=== PATIENT | female | born 1970 | race Caucasian/White ===

== ENCOUNTER 2024-08-30 20:24 | Inpatient (IN) | payer BC, OTHER, SELFPAY ==
[2024-08-30] VITALS (9 sets, daily range): BP systolic 113–168; BP diastolic 68–113; BMI 57.6; BMI 56.2
--- NOTE | 2024-08-30 15:23 | ED.GENMED ---
History of Present Illness
General
Chief Complaint: Fainting/Passed Out
Source: patient, records and ambulance crew
Exam Limitations: none
Time Seen by Provider: 08/30/24 15:08
Nursing documentation reviewed up to this point in time: agreed with
History of Present Illness
History of Present Illness:
53-year-old female with a past medical history of migraines, seizures, asthma, conversion disorder, chronic pain syndrome, mitochondrial disease, morbid obesity, recurrent syncope, prior strokes, history of tracheostomy who presents to the emergency
room for evaluation after syncopal event. Patient says that she has an appointment with her primary doctor every 2 weeks due to her multiple chronic illnesses. She says that she had one of her routine appointments today and during the appointment
she became dizzy and passed out. She says that this felt more like an episode of her recurrent syncope rather than a seizure. She was transported to the ER for evaluation. She has mild associated headache and has some tightness in her
chest/shortness of breath; she says that she has been coughing chronically. Denies any other acute complaints today. She denies any symptoms prior to passing out today. Her family is at bedside and helped with some collateral history:
Past History
Past History
ED Past Medical History: Asthma, Seizures, Psychiatric (Depression, conversion disorder), Other (Chronic pain syndrome, migraine headaches, morbid obesity, extensive workup for connective tissue disease, mitochondrial disease, neuro cardiogenic
syncope, strokes) and Other (Diverticulitis, Abd hernia, UTI, Anemia, Primary immune def. disease, TI fistula)
ED Past Surgical History: (X 4) and Other (muscle bx x 4, Trach, )
Social History
Tobacco: Former smoker
Alcohol: None
Personal:
Living: with family
Employment: Not employed
Family History
Family History: Other (Reviewed and non-contributory)
Review of Systems
Review of Systems
All Other Systems: ROS reviewed and negative except as documented in HPI and ROS
Respiratory: Reports cough and trouble breathing
Cardiac: Reports chest pain (Tightness); Denies palpitations
ABD/GI: Denies abdominal pain, nausea or vomiting
: Denies flank pain
Musculoskeletal: Denies edema
Neurological: Reports dizzy and headache
Phy Exam
Physical Exam
Physical Exam:
General: Sleeping in bed during my initial entry but wakes to voice and is able to hold conversation, oriented x 3, nontoxic-appearing
Head: Normocephalic, atraumatic
Eyes: Conjunctiva normal, pupils equal round and reactive to light bilaterally
Throat: Airway intact, handling secretions
Neck: Trachea midline, tracheostomy in place
Lungs: Patient has bilateral scattered expiratory wheezing
Heart: Regular rate and rhythm, no murmurs, gallops, or rubs appreciated
Abd: Soft, non distended, nontender; abdominal wall hernia noted
Neuro: Cranial nerves grossly intact, moving all extremities equally
Extremities: Trace edema in the legs, no calf tenderness, extremities are warm and well-perfused
Scores
Heart Failure Risk
Heart Failure Risk Score: Not Applicable
Heart Score for Chest Pain Patients
STEMI patient?: Not applicable
Withdrawal Assessment of Alcohol
Withdrawal Assessment Completed?: Not applicable
Course
Orders/Labs/Results
Orders:
Orders
08/30/24 15:06
Electrocardiogram (*1) Urgent
Reason for Study: Chest Pain
Cardiac Monitoring- Treatment ONCE
IV Insert/Care/Rem.- Treatment PRN
08/30/24 15:07
EKG- Treatment ONCE
08/30/24 15:08
CR Chest Portable - 1 View Urgent
Comment:
Reason For Exam: cough
Reason Study Needs to be Portable: Unable to Transport
08/30/24 15:32
CT Head W/o Iv Contrast Urgent
Comment:
Reason For Exam: syncope, headache
Ipratropium/Albuterol Sulfate [Duoneb] 3 ml INH R NOW STA
08/30/24 15:39
Complete Blood Count/With Diff Urgent
Comprehensive Metabolic Panel Urgent
Prothrombin Time Urgent
Troponin I Urgent
08/30/24 16:20
Keppra (Levetiracetam) [S] Urgent
Lactate Level [Lactic Acid] Urgent
08/30/24 16:45
0.9% Sodium Chloride 500 ml [Nss] 500 ml IV BOLUS
08/30/24 19:15
Sputum Culture [Respiratory Culture/Gram Stain] Urgent
TAWANDA Source: Sputum
Specimen Description:
08/30/24 19:38
Oxycodone [Roxicodone] 10 mg PO NOW STA
Abnormal Lab Results
08/30/24
15:39
WBC 14.1 H 10^3/uL
(4.8-10.8)
MCHC 32.8 L g/dL
(33.0-37.0)
RDW 14.9 H %
(11.5-14.5)
Abs Immat Gran (auto) 0.1 H 10^3/uL
(0-0.05)
Absolute Neuts (auto) 9.3 H 10^3/uL
(1.4-6.5)
Absolute Monos (auto) 1.2 H 10^3/uL
(0.1-0.6)
Absolute Eos (auto) 0.8 H 10^3/uL
(0-0.7)
Lymphocytes % 18.7 L %
(20.5-51.1)
Chloride 109 H mmol/L
(98-107)
Carbon Dioxide 21 L mmol/L
(22-30)
BUN 26 H mg/dl
(7-17)
Creatinine 1.4 H mg/dL
(0.6-1.0)
08/30/24 15:39
08/30/24 15:39
Vital Signs
Initial and Last Documented VS:
Initial Vital Signs
Pulse BP Pulse Ox
69 127/76 100
08/30/24 15:06 08/30/24 15:06 08/30/24 15:06
Last Documented Vital Signs
Temp Pulse Resp BP Pulse Ox
36.6 C 73 12 116/70 98
08/30/24 19:35 08/30/24 19:00 08/30/24 19:00 08/30/24 19:00 08/30/24 19:00
MDM/Problems Addressed
Differential Diagnosis Includes:
Wide differential includes but not limited to: Vasovagal syncope, dysautonomia, dysrhythmia, anemia, electrolyte derangement, seizure; Valvular disease less likely with no audible murmurs and with echocardiogram roughly a year ago showing no
significant valvular disease, less likely ACS, less likely subarachnoid hemorrhage or stroke
MDM/Problems Addressed:
53-year-old female with history of recurrent syncope presents after what she describes as one of her typical syncopal events. She says she was on a telehealth appointment when she became dizzy and passed out. She has had mild headache and some
tightness in her chest as well as mild shortness of breath since the episode. Vital signs here within normal limits. Physical exam as above. During repositioning on initial assessment she did have a coughing fit associated with some mild
hypoxia�she was placed on some supplemental oxygen briefly. She has noted to have scattered wheezing throughout all lung razo. Will plan to treat with a DuoNeb. Will place an IV send labs including CBC CMP, troponin. Will check chest x-ray and
EKG. Check CT head. Will monitor patient on telemetry. Reassess after the above.
Labs reviewed: CBC shows leukocytosis to 14. CMP shows mild CRUZ with a creatinine of 1.4. Troponin negative. CT head no acute disease. Chest x-ray concerning for left lower lung pneumonia. This could account for worsening cough and symptoms
described. Likely that syncope occurred in the setting of coughing/respiratory illness. Plan to treat with antibiotics, admit for continued monitoring and treatment given her complex medical history. Case discussed with hospitalist.
Chronic conditions affecting care:
Morbid obesity, chronic disease, chronic tracheostomy, recurrent syncope, seizure disorder
*Radiology
Radiology exam reviewed: preliminary read by ED provider and radiology read reviewed
*Pulse Oximetry
Patient hypoxic: no (100%)
*EKG
Interpreted by ED Provider?: Yes
Comparison EKG: changes noted (T wave version more prominent aVL)
Heart Rate: 68
Rate: normal
Rhythm: sinus
[place]: normal axis
Interval: normal interval
QRS Pattern: normal QRS
Ischemia: T-wave inversion (aVL)
*Critical Care Note
Total Time (30-74mins, 75-104mins- exclusive of procedures): Not Applicable
Data Reviewed
Review of Other/Old Records Reveals: Labs, Records, Testing and Discharge Summary
Source: patient, records and family
Patient Management
Discussion with other providers: Hospitalist (Discussed with hospitalist)
Escalation/DeEscalation of care consider admission/obs:
Admission indicated
ED Attending Note
-
Portions of this chart may have been created with voice recognition software.� Occasional wrong word or��sound alike� substitutions may have occurred due to the inherent limitations of voice recognition software.
Discharge Plan
Departure
Patient Disposition: Admit
Date of Disposition: 08/30/24
Time of Disposition: 18:19
Admit to doctor: Mireya
Presentation/result/management discussed w/ accepting MD/DO: Hospitalist
Discharge Problem:
Pneumonia, Syncope
Prescriptions:
No Action
pravastatin 40 MG tablet
40 mg PO HS
morphine 15 MG tablet extended release
45 mg PO DAILY
zinc 15 MG tablet
15 mg PO DAILY
famotidine 40 MG tablet
40 mg PO HS
pantoprazole 40 MG tablet,delayed release (DR/EC)
40 mg PO BID
levothyroxine 125 MCG tablet
125 mcg PO DAILY
cyanocobalamin (vitamin B-12) 1,000 MCG tablet
500 mcg PO DAILY
levetiracetam 250 MG tablet
750 mg PO BID
spironolactone 50 MG tablet
100 mg PO BID
budesonide 1 MG/2 ML suspension for nebulization
1 mg IH R TID
oxycodone-acetaminophen 10-325 mg tablet
1 tab PO Q4H@09,13,17,21,0100
Patient Comments:
02/17/2023, patient filled this medication on 01/27/2023 for 150 tablets according to PDMP.
hyoscyamine sulfate 0.125 mg Tablet, Sublingual
0.125 mg PO Q4HPRN PRN (Reason: esophageal spamsms)
coQ10 (ubiquinol) 200 mg Capsule
200 mg PO TID
Dupixent Pen 300 mg/2 mL pen injector
300 mg SC Q2W
Gaviscon 95-358 mg/15 mL Suspension
5 ml PO Q4HPRN PRN (Reason: gerd) Qty: 0
sennosides [senna] 8.6 mg Tablet
8.6 mg PO HS
prednisone 10 mg Tablet
7 mg PO QPM
benzonatate 200 mg Capsule
200 mg PO TID
morphine 30 mg Tablet Extended Release
60 mg PO HS
Patient Comments:
02/17/2023, patient filled this medication on 02/09/2023 for 90 tablets according to PDMP.
potassium chloride [Klor-Con M20] 20 mEq Tablet,Er Particles/Crystals
20 meq PO TID
niacinamide 500 mg Tablet
500 mg PO QPM Qty: 0
nystatin 100,000 unit/gram Cream
1 applic TOPICAL BID
magnesium oxide 500 mg Tablet
1,000 mg PO BID
bumetanide 1 mg Tablet
1 mg PO DAILY
nystatin 100,000 unit/gram Powder
1 applic TOPICAL BID
riboflavin (vitamin B2) [Vitamin B-2] 50 mg Tablet
50 mg PO Q48H
topiramate 50 mg Tablet
150 mg PO HS
arformoterol [Brovana] 15 mcg/2 mL Solution For Nebulization
2 ml INHALATION R BID
calcium carbonate-vitamin D3 [Calcium 500 + D] 500 mg-10 mcg (400 unit) Tablet
1 tab PO DAILY Qty: 0
Visbiome 112.5 billion cell Capsule
1 cap PO DAILY
sodium chloride 7 % Solution For Nebulization
4 ml INHALATION R BID
Gentle Iron 28 mg iron-60mg -400 mcg-8 mcg Capsule
1 cap PO DAILY@0500 Qty: 0
Carnitine powder
3,000 mg PO DAILY
ipratropium-albuterol 0.5 mg-3 mg(2.5 mg base)/3 mL Solution For Nebulization
3 ml INHALATION R BID
duloxetine [Cymbalta] 30 mg Capsule,Delayed Release(Dr/Ec)
30 mg PO BID
cetirizine [Zyrtec] 10 mg Tablet
10 mg PO DAILY
lidocaine 5 % Adhesive Patch,Medicated
3 patch TOPICAL DAILYPRN PRN (Reason: mild pain)
folic acid 1 mg Tablet
2 mg PO HS
Creon 36,000-114,000- 180,000 unit Capsule,Delayed Release(Dr/Ec)
2 cap PO BID@1200,1800
Creon 36,000-114,000- 180,000 unit Capsule,Delayed Release(Dr/Ec)
1 cap PO DAILYPRN PRN (Reason: snacks)
Referrals:
Uma Gabriel MD [Family Provider, Family Practice]
Interventions
Interventions:
*Risk Screen - Suicide Last Done: 08/30/24 15:12
*General Assessment Last Done: 08/30/24 15:12
*Neglect/Abuse Screening Last Done: 08/30/24 15:12
*ED COVID-19 Vaccine History Last Done: 08/30/24 15:12
ED- Cardiac Assessment Last Done: 08/30/24 19:46
ED- Neurological Assessment Last Done: 08/30/24 19:46
Discharge Date and Time
Print Language: GRENADIAN
[2024-08-30 15:49] LABS: Hematocrit 38.1 % (37.0-47.0); Hemoglobin 12.5 g/dL (12.0-16.0); Mean Corp Hgb Conc. 32.8 g/dL (33.0-37.0); Mean Corpuscular Volume 87.8 fL (81.0-99.0); Nucleated Red Blood Cells % 0 %; Platelet Count 267 10^3/uL (130-400); Red Cell Dist. Width 14.9 % (11.5-14.5)
[2024-08-30 15:54] LABS: INR 1.03; PT 13.8 Sec (11.4-14.6)
[2024-08-30 16:05] LABS: ALT (SGPT) 20 U/L (0-35); AST (SGOT) 22 U/L (14-36); Albumin 4.3 g/dl (3.5-5.0); Alkaline Phosphatase 111 U/L (38-126); Blood Urea Nitrogen 26 mg/dl (7-17); Calcium 9.7 mg/dl (8.4-10.2); Carbon Dioxide 21 mmol/L (22-30); Chloride 109 mmol/L (98-107); Estimated Creatinine Clearance 60 ml/min; Glucose 86 mg/dl (70-99); Potassium 4.2 mmol/L (3.5-5.1); Sodium 136 mmol/L (135-145); Total Protein 7.9 g/dl (6.3-8.2); eGFR 44.43
[2024-08-30 16:11] LABS: Troponin I < 0.012 ng/ml
--- NOTE | 2024-08-30 16:13 | EDRN ---
Just TT'd RT for trach collar set to administer duo neb.
[2024-08-30] MEDS: DUONEB 3 ML INH ×2 (16:30→22:41)
[2024-08-30] MEDS: NSS 500 IV (17:21)
--- NOTE | 2024-08-30 18:26 | HPS.HSE ---
Family Physician
-
Family Physician: Uma Gabriel MD
Chief Complaint
-
Syncope
History of Present Illness
Patient is a 53 y/o female with a very complicated medical history including cardiac arrest requiring multiple intubations and evaluate tracheostomy placed, asthma, bronchiectasis, heart failure, chronic kidney disease and chronic pain syndrome who
presents following a syncopal episode. Patient reports she was having a telemedicine visit with her PCP in followup for a recent episode of shingles. During the visit she developed lightheadedness and passed out. EMS was called who found her blood
pressure to be on the low side, and she as brought to the emergency department for evaluation. Work-up in ED revealed evidence of leukocytosis and chest x-ray consistent with pneumonia. Patient reports some increased shortness of breath and
increased cough. She denies fever. She is immunocompromised on chronic steroids for her asthma.
Medical History
Past Medical History
Past Medical History: Reports Other
Additional Past Medical History:
Chronic Hypoxic Respiratory Failure s/p Tracheostomy
Cardiac Arrest
Asthma / Bronchiectasis
Chronic HFpEF
Essential Hypertension
Hyperlipidemia
Hypothyroidism
Chronic Pancreatic Insufficiency
Chronic Pain Syndrome
Primary Immunodeficiency Disorder
Possible [place]'s
Past Surgical History: Reports Other
Additional Past Surgical History:
Section
Tracheostomy
Tracheal Innominate Artery Fistula Repair
Social History
Tobacco: Non-smoker
Alcohol: None
Drug: None
Personal:
Living: With Family
Family History
Family History: Not pertinent
Allergies / Home Medications
Allergies reflects when Allergies were last updated in [employer].
Home Medications with original date entered in [employer]
Allergy/Medication List:
Allergies
Allergy/AdvReac Type Severity Reaction Status Date / Time
amoxicillin Allergy lip Verified 08/30/24 15:59
swelling
banana Allergy Shortness Verified 08/30/24 15:59
of
Breath/asthma
Benzodiazepines Allergy Unknown Verified 08/30/24 15:59
cephalexin (From Keflex) Allergy Hives Verified 08/30/24 15:59
codeine Allergy Vomiting Verified 08/30/24 15:59
cortisone Allergy Anaphylaxis Verified 08/30/24 15:59
diclofenac Allergy Nausea / Verified 08/30/24 15:59
Vomiting
diltiazem (From Cardizem) Allergy severe Verified 08/30/24 15:59
extremity
cramping
doxycycline Allergy hypersensitive Verified 08/30/24 15:59
to side
effects
fluconazole Allergy Hives Verified 08/30/24 15:59
hydromorphone HCl (From Allergy Vomiting Verified 08/30/24 15:59
Dilaudid)
levofloxacin (From Levaquin) Allergy Unknown Verified 08/30/24 15:59
morphine Allergy Vomiting Verified 08/30/24 15:59
nirmatrelvir (From Paxlovid) Allergy Itching Verified 08/30/24 15:59
ritonavir (From Paxlovid) Allergy Itching Verified 08/30/24 15:59
ropinirole HCl (From Requip) Allergy Vomiting Verified 08/30/24 15:59
[id number] Reductase Allergy Unknown Verified 08/30/24 15:59
Inhibitor
sulfamethoxazole (From Allergy Nausea / Verified 08/30/24 15:59
Bactrim) Vomiting
trimethoprim (From Bactrim) Allergy Nausea / Verified 08/30/24 15:59
Vomiting
cortisone shots Allergy Unknown Uncoded 08/30/24 15:59
Home Medications
morphine 15 mg tablet,extended release 45 mg PO DAILY Pain 09/13/17
pravastatin 40 mg tablet 40 mg PO HS High cholesterol 09/13/17
budesonide 1 mg/2 mL suspension for nebulization 1 mg IH R TID Fluid retention/Swelling 11/12/20
cyanocobalamin (vitamin B-12) 1,000 mcg tablet 500 mcg PO DAILY Supplement 11/12/20
famotidine 40 mg tablet 40 mg PO HS Gastrointestinal issue 11/12/20
levetiracetam 250 mg tablet 750 mg PO BID Seizures 11/12/20
levothyroxine 125 mcg tablet 125 mcg PO DAILY Thyroid 11/12/20
pantoprazole 40 mg tablet,delayed release 40 mg PO BID Gastrointestinal issue 11/12/20
spironolactone 50 mg tablet 100 mg PO BID Heart disease/condition 11/12/20
zinc 15 mg tablet 15 mg PO DAILY Supplement 11/12/20
coQ10 (ubiquinol) 200 mg capsule 200 mg PO TID Supplement 02/01/22
dupilumab 300 mg/2 mL subcutaneous pen injector (Dupixent) 300 mg SC Q2W 02/01/22
hyoscyamine sulfate 0.125 mg sublingual tablet 0.125 mg PO Q4HPRN PRN esophageal spamsms 02/01/22
oxycodone-acetaminophen 10 mg-325 mg tablet 1 tab PO Q4H@09,13,17,21,0100 02/01/22
Carnitine 3,000 mg PO DAILY 02/17/23
Lactobac no.2-Bifidobac no.1-S. thermo 112.5 billion cell capsule (Visbiome) 1 cap PO DAILY 02/17/23
aluminum hydrox-magnesium carb 95 mg-358 mg/15 mL oral suspension 5 ml PO Q4HPRN PRN gerd ##0 02/17/23
arformoterol 15 mcg/2 mL solution for nebulization (Brovana) 2 ml inhalation R BID 02/17/23
benzonatate 200 mg capsule 200 mg PO TID 02/17/23
bumetanide 1 mg tablet 1 mg PO DAILY 02/17/23
calcium 500 mg (as carbonate)-vitamin D3 10 mcg (400 unit) tablet (Calcium 500 + D) 1 tab PO DAILY ##0 02/17/23
ipratropium 0.5 mg-albuterol 3 mg (2.5 mg base)/3 mL nebulization soln 3 ml inhalation R BID 02/17/23
iron bis glycinate guy 28 mg iron-vit C 60 mg-FA 400 mcg-B12 8mcg cap (Gentle Iron) 1 cap PO DAILY@0500 ##0 02/17/23
magnesium oxide 1,000 mg PO BID 02/17/23
morphine 30 mg tablet,extended release 60 mg PO HS 02/17/23
niacinamide 500 mg tablet 500 mg PO QPM ##0 02/17/23
nystatin 100,000 unit/gram topical cream 1 applic topical BID apply to chest/B/L chest 02/17/23
nystatin 100,000 unit/gram topical powder 1 applic topical BID apply to chest/B/L legs 02/17/23
potassium chloride 20 mEq tablet,extended release(part/cryst) (Klor-Con M) 20 meq PO TID 02/17/23
prednisone 10 mg tablet 7 mg PO QPM 02/17/23
riboflavin (vitamin B2) 50 mg tablet (Vitamin B-2) 50 mg PO Q48H 02/17/23
sennosides 8.6 mg tablet (senna) 8.6 mg PO HS 02/17/23
sodium chloride 7 % for nebulization 4 ml inhalation R BID 02/17/23
topiramate 50 mg tablet 150 mg PO HS 02/17/23
cetirizine 10 mg tablet (Zyrtec) 10 mg PO DAILY 08/30/24
duloxetine 30 mg capsule,delayed release 30 mg PO BID 08/30/24
folic acid 1 mg tablet 2 mg PO HS 08/30/24
lidocaine 5 % topical patch 3 patch topical DAILYPRN PRN mild pain 08/30/24
nmgoso-nyqyriji-rpgapgp 36,000-114,000-180,000 unit capsule,delay rel (Creon) 1 cap PO DAILYPRN PRN snacks 08/30/24
afrekz-pcykohdd-dzmaybj 36,000-114,000-180,000 unit capsule,delay rel (Creon) 2 cap PO BID@1200,1800 08/30/24
Review of Systems
-
A 12 point ROS was completed and negative except as noted: Yes
Constitutional: Denies Fever
Respiratory: Reports See HPI
Cardiac: Reports Syncope; Denies Chest Pain or Palpitations
Physical Exam
Vital Signs
Vital Signs
Temp Pulse Resp BP Pulse Ox
98.2 F 70 17 123/74 99
08/30/24 15:12 08/30/24 17:30 08/30/24 17:30 08/30/24 17:24 08/30/24 17:30
Physical Exam
General: Comfortable and Conversant
HEENT: Anicteric, Moist mucous membranes and Tracheostomy Collar
Respiratory: Rhonchi and Non Labored Respirations
Cardiac: S1/S2 and Regular Rhythm
GI: Soft, Non Tender and Other (Protuberant)
Rectal: Deferred by Provider
Musculoskeletal: No Clubbing, No Cyanosis and Other (Compression stockings in place bilaterally)
Skin: Warm and Dry
Neuro: Awake, Alert, Oriented and Nonfocal/grossly intact
Psych: Calm
Laboratory Results
-
08/30/24 15:39
08/30/24 15:39
Laboratory Results
PT 13.8 Sec (11.4-14.6) 08/30/24 15:39
INR 1.03 08/30/24 15:39
Lactic Acid 1.0 mmol/L (0.7-2.0) 08/30/24 16:20
Total Bilirubin 0.5 mg/dl (0.2-1.3) 08/30/24 15:39
AST 22 U/L (14-36) 08/30/24 15:39
ALT 20 U/L (0-35) 08/30/24 15:39
Alkaline Phosphatase 111 U/L (38-126) 08/30/24 15:39
Troponin I < 0.012 ng/ml 08/30/24 15:39
Data Reviewed
-
Diagnostic Radiology: Report Reviewed by me
Lab Data: Labs Reviewed by me
Impression/Plan
-
Ventilator-Associated Pneumonia
-Patient is high risk as she is immunocompromised on chronic steroids and has history of bronchiectasis with reports of prior pseudomonas in the past
-Reviewed with infectious disease who recommends meropenem in setting of multiple allergies / adverse reactions
-Attempt to obtain sputum culture
-Add Mucinex
-Encourage use of incentive spirometer
-Consult respiratory therapy for chest percussion
-Consult Pulmonary
Chronic Hypoxic Respiratory Failure s/p Tracheostomy on Nightly Vent
Asthma / Bronchiectasis
-Continue supplemental oxygen via trach collar
-Continue prednisone as prior to admission
-Continue arformoterol, budesonide, DuoNeb and NaCl nebs
-Patient maintained on Dupixent as outpatient
Syncope, suspect related to hypotension
-Monitor on Telemetry
-Check orthostatic vital signs
Chronic HFpEF / Chronic Lower Ext Lymphedema
-Continue bumetanide and spironolactone
CKD Stage III
-Creatinine seems to be at baseline
Pancreatic Insufficiency
-Continue Creon
Seizure Disorder
-Continue levetiracetam
Hypothyroidism
-Continue levothyroxine
Chronic Pain with Opioid Dependence
-Continue morphine and oxycodone as prior t admission
-Continue duloxetine and topiramate
GERD
-Continue Protonix and Pepcid
Class III Obesity
-Affects all aspects of care
DVT proph: Lovenox
Code Status: Full Code
--- NOTE | 2024-08-30 18:44 | EDRN ---
Twila DAVIDSON in room w/ pt at this time.
--- NOTE | 2024-08-30 19:36 | EDRN ---
Pt informed this RN that she was put on ceftazidine and wanted the admit provider to know this. Pt says she takes percocet and her last dose was due at 1700 and asked that she be given a dose. Pt also asking about food and beverage. Fabi Betancur
PA was informed of abx and percocet request. Pt up to bedside commode.
[2024-08-30] MEDS: ROXICODONE 10 MG PO ×2 (19:54→23:08)
--- NOTE | 2024-08-30 20:13 | W.PN.UPDATE ---
Update Note
Progress Note Update
This note serves as an addendum to the H&P by weights and measures sealer KYARA Fabi BUNDY
HPI
53 Morbid obesity, prior cardiac arrest with multiple intubations, post tracheostomy 2017, use Passy-Delta valve during the day HX stroke, cardiogenic syncope, Sz, depression, conversion disorder, chronic pain syndrome, primary immunodeficiency
disorder, mitochondrial disease, CABG. Poly pharmacy seen at ER seen at ER:
- for evaluation after syncopal event. She passed while she was on Telemdicien wit one on DrJen appointment
- one of her routine appointments today and during the appointment she became dizzy and passed out.
- felt more like an episode of her recurrent syncope rather than a seizure.
- transported to the ER for evaluation.
- mild associated headache and has some tightness in her chest/shortness of breath;
- has been coughing chronically.
Denies any other acute complaints today.
Denies any symptoms prior to passing out today.
Family is at bedside and helped with some collateral history:
Vital Signs
Temp Pulse Resp BP Pulse Ox
98 F 73 12 116/70 98
08/30/24 19:35 08/30/24 19:00 08/30/24 19:00 08/30/24 19:00 08/30/24 19:00
PE
Gen: Morbidly obese, able to hold conversation, Not toxic
HEENT:
Neck: tracheostomy and colar in place
Lungs: bilateral scattered expiratory wheezing
Cor: RRR S1 s2
Abdomen: soft abdomen
MS: Trace edema in the legs,
Relevant data
Labs
02/19/23 08/30/24 08/30/24
05:10 15:39 16:20
WBC 14.1 H
Chloride 109 H
Carbon Dioxide 21 L
BUN 26 H
Creatinine 1.1 H 1.4 H
eGFR 59.71 44.43
Lactic Acid 1.0
EKG
NORMAL SINUS RHYTHM
NORMAL ECG
WHEN COMPARED WITH ECG OF 17-FEB-2023 21:50,
VENT. RATE HAS DECREASED BY 45 BPM
INVERTED T WAVES HAVE REPLACED NONSPECIFIC T WAVE ABNORMALITY IN LATERAL LEADS
Confirmed by CARMEN CID MD ([id number]) on 08/30/2024 4:02:29 PM
CXR
1. Findings suggestive of left lower lobe pneumonia or subsegmental atelectasis.
2. Cardiomegaly without evidence of decompensated CHF.
08/30/[address] evidence for acute intracranial hemorrhage or transcortical infarct.
2. Mild bilateral frontal and parietal lobe volume loss.
3. Mild white matter leukoaraiosis in both cerebral hemispheres.
4. Low-lying cerebellar tonsils.
02/17/23 TTE
LVEF > 75
Nl RV size and function
No significant valvular pathology
Last hospitalist admission: 02/17/2023 - 02/19/2023
DC Dx:
esophageal spasm,
possible aspiration
ASSESSMENT & PLAN
Extreme obesity with Class III BMI 57
- affect all aspects of life
Polypharmacy and polypharmacy allergy noted
Syncope
BP 113/70 on arrival
HX cardiogenic syncope
HX Sz and Pseudo Sz disorder
- s/p NS 500 cc
- EKG shows NSR
- fall precaution
- Tele monitor
Cough
CXR suggest LLL PNA Vent associated PNA ? vs. Atx ? VAP
Leucocytosis ( chronic prednisone use ) but afebrile
Poly ABx allergy ( Doxy, Cephalexin, LVQ, Sulfa)
- Agree with IV Meropenem for now
- Trend T and WCC
Tracheostomy 2017, use Passy-Jacyee valve during the day
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
- she rest on vent at night
- use TC with PMV at day
- on Solid diet
- Pul consult
Essential HTN
- cont. will all OP Meds on Bumex and spironolactone at home
HX CKD suspect 3a
- somewhat stable
- baseline Cr 1.3 , 1.4
- eGFR mid 40s
HLD
-statin
Hypothyroidism
- on levothyroxine
HX cardiac arrest with multiple intubation, ow status post tracheostomy
HX seizure & Pseudo Sz per prior records
- on Keppra and Topamax continued
HX primary immunodeficiency disorder
HX asthma
- not in acute exacerbation
- on Brovana, benzonatate, budesonide
- on Albuterol MDI prn for sob/wheezing
HX Conversion disorder
HX Depression
Chronic pain syndrome: on INSURANCE CLAIMS EXAMINER-morphine and oxy continued
GERD/esophageal spasms
- on famotidine
DVT Px: SQH
Full code
IP TLM
--- NOTE | 2024-08-30 21:24 | EDRN ---
Report called to Genie in IMU
[2024-08-30] MEDS: PULMICORT 1 MG INH (22:41)
[2024-08-30] MEDS: TESSALON PERLES 200 MG PO (23:06)
[2024-08-30] MEDS: KEPPRA 750 MG PO (23:07)
[2024-08-30] MEDS: MS CONTIN (EXTENDED RELEASE) 60 MG PO (23:07)
[2024-08-30] MEDS: TOPAMAX 150 MG PO (23:08)
[2024-08-30] MEDS: PRAVACHOL 40 MG PO (23:08)
[2024-08-30] MEDS: SENOKOT 8.6 MG PO (23:08)
[2024-08-30] MEDS: CYMBALTA DELAYED RELEASE 30 MG PO (23:09)
[2024-08-30] MEDS: MAGNESIUM OXIDE 1000 MG PO (23:10)
[2024-08-30] MEDS: PROTONIX 40 MG PO (23:10)
[2024-08-30] MEDS: PEPCID 40 MG PO (23:10)
[2024-08-30] MEDS: KCL 20 MEQ PO (23:10)
[2024-08-30] MEDS: STERILE WATER FOR INJECTION 10 ML IV (23:11)
[2024-08-30] MEDS: MERREM 500 MG IV (23:11)
[2024-08-30] MEDS: HEPARIN 5000 UNITS SC (23:11)
[2024-08-30] MEDS: ALDACTONE 100 MG PO (23:14)
[2024-08-31] VITALS (11 sets, daily range): BP systolic 117–135; BP diastolic 69–98; BMI 55.1
--- NOTE | 2024-08-31 00:09 | PTCARENOTE ---
Patient admitted to IMU from ED this evening. Patient aao x3, transferred independently from stretcher to bed. Patient verbalizes pain 6/10 to lower back and left middle back. Patient has chronic pain to lower back, daily medications administered as
ordered. Patient trach collar 35%, pox 96%, inspiratory and expiratory wheezing noted throughout all lobes. NSR on the monitor. Patient continent of bowel and bladder and assisted x1 to bsc. Orthostatic BPs obtained, no drop in bp noted. MASD to b/l
groin folds, abdominal folds, and beneath b/l breasts. Desenex ordered and sent to pharmacy. Call alvarado within reach, patient using call alvarado appropriately. Will continue to monitor.
[2024-08-31] MEDS: ROXICODONE PO (02:03)
[2024-08-31] MEDS: ROXICODONE 10 MG PO ×5 (03:18→20:44)
[2024-08-31] MEDS: DESENEX/MITRAZOL/ZEASORB 1 APPLIC TOPICAL ×3 (03:18→20:48)
[2024-08-31] MEDS: MERREM 500 MG IV ×4 (03:19→20:48)
[2024-08-31] MEDS: STERILE WATER FOR INJECTION 10 ML IV ×4 (03:19→20:48)
[2024-08-31 04:06] LABS: Hematocrit 36.2 % (37.0-47.0); Hemoglobin 11.8 g/dL (12.0-16.0); Mean Corp Hgb Conc. 32.6 g/dL (33.0-37.0); Mean Corpuscular Volume 88.5 fL (81.0-99.0); Platelet Count 248 10^3/uL (130-400); Red Cell Dist. Width 14.8 % (11.5-14.5)
[2024-08-31 04:31] LABS: Blood Urea Nitrogen 21 mg/dl (7-17); Calcium 9.6 mg/dl (8.4-10.2); Carbon Dioxide 20 mmol/L (22-30); Chloride 109 mmol/L (98-107); Estimated Creatinine Clearance 64 ml/min; Glucose 108 mg/dl (70-99); Potassium 4.4 mmol/L (3.5-5.1); Sodium 138 mmol/L (135-145); eGFR 48.56
[2024-08-31] MEDS: SYNTHROID 125 MCG PO (06:04)
--- NOTE | 2024-08-31 07:06 | CON.PUL ---
Consultation
Consultation Request
Date/Time Consultation Requested: 08/30/2024
Date/Time Consultation Performed: 08/31/2024
Medical History
-
Chief Complaint: Syncope, increaaed tracheal secretions
History of Present Illness:
Patient is a very pleasant 53-year-old female with complex pulmonary history. Patient has prior history of cardiac arrest s/p multiple intubations, obesity with suspected sleep disordered breathing s/p tracheostomy now on nightly home ventilation.
Patient is on trach collar during daytime at about 6 L and then she is on home ventilator nightly through her current tracheostomy tube which is 7.0, cuffless, silicon tube. She also carries a prior diagnosis of tracheal innominate artery fistula
s/p surgical repair. Also carries a diagnosis of asthma, bronchiectasis and chronic pain syndrome. Patient reportedly was admitted for an episode of suspected syncope. Also reports increased cough and greenish expectoration through her
tracheostomy tube over the last few days. No reported fever or chills. She was admitted to the hospital with concern for possible left lower lobe pneumonia. She was started on broad-spectrum antibiotics and pulmonary consultation was requested
for further input.
Past Medical History
Past Medical History: Reports Other
Additional Past Medical History:
Chronic Hypoxic Respiratory Failure s/p Tracheostomy
Cardiac Arrest
Asthma / Bronchiectasis
Chronic HFpEF
Essential Hypertension
Hyperlipidemia
Hypothyroidism
Chronic Pancreatic Insufficiency
Chronic Pain Syndrome
Primary Immunodeficiency Disorder
Possible Herb's
Past Surgical History: Reports Other
Additional Past Surgical History:
Section
Tracheostomy
Tracheal Innominate Artery Fistula Repair
Social History
Tobacco: Non-smoker
Alcohol: None
Drug: None
Personal:
Living: With Family
Family History
Family History: Not pertinent
Allergies / Home Medications
Allergies / Home Medications
Allergies
Allergy/AdvReac Type Severity Reaction Status Date / Time
amoxicillin Allergy lip Verified 08/30/24 15:59
swelling
banana Allergy Shortness Verified 08/30/24 15:59
of
Breath/asthma
Benzodiazepines Allergy Unknown Verified 08/30/24 15:59
cephalexin (From Keflex) Allergy Hives Verified 08/30/24 15:59
codeine Allergy Vomiting Verified 08/30/24 15:59
cortisone Allergy Anaphylaxis Verified 08/30/24 15:59
diclofenac Allergy Nausea / Verified 08/30/24 15:59
Vomiting
diltiazem (From Cardizem) Allergy severe Verified 08/30/24 15:59
extremity
cramping
doxycycline Allergy hypersensitive Verified 08/30/24 15:59
to side
effects
fluconazole Allergy Hives Verified 08/30/24 15:59
hydromorphone HCl (From Allergy Vomiting Verified 08/30/24 15:59
Dilaudid)
levofloxacin (From Levaquin) Allergy Unknown Verified 08/30/24 15:59
morphine Allergy Vomiting Verified 08/30/24 15:59
nirmatrelvir (From Paxlovid) Allergy Itching Verified 08/30/24 15:59
ritonavir (From Paxlovid) Allergy Itching Verified 08/30/24 15:59
ropinirole HCl (From Requip) Allergy Vomiting Verified 08/30/24 15:59
Laneqdj-LFB-BdK Reductase Allergy Unknown Verified 08/30/24 15:59
Inhibitor
sulfamethoxazole (From Allergy Nausea / Verified 08/30/24 15:59
Bactrim) Vomiting
trimethoprim (From Bactrim) Allergy Nausea / Verified 08/30/24 15:59
Vomiting
Home Medications
�Medication �Instructions �Recorded �Confirmed �Last Taken �Type
morphine 15 mg tablet,extended 45 mg PO DAILY Pain 09/13/17 08/30/24 08/30/24 History
release
pravastatin 40 mg tablet 40 mg PO HS High cholesterol 09/13/17 08/30/24 08/29/24 History
budesonide 1 mg/2 mL suspension 1 mg IH R TID Fluid 11/12/20 08/30/24 08/30/24 History
for nebulization retention/Swelling
cyanocobalamin (vitamin B-12) 500 mcg PO DAILY Supplement 11/12/20 08/30/24 08/30/24 History
1,000 mcg tablet
famotidine 40 mg tablet 40 mg PO HS Gastrointestinal issue 11/12/20 08/30/24 08/29/24 History
levetiracetam 250 mg tablet 750 mg PO BID Seizures 11/12/20 08/30/24 08/30/24 History
levothyroxine 125 mcg tablet 125 mcg PO DAILY Thyroid 11/12/20 08/30/24 08/30/24 History
pantoprazole 40 mg tablet,delayed 40 mg PO BID Gastrointestinal issue 11/12/20 08/30/24 08/30/24 History
release
spironolactone 50 mg tablet 100 mg PO BID Heart 11/12/20 08/30/24 02/16/23 History
disease/condition
zinc 15 mg tablet 15 mg PO DAILY Supplement 11/12/20 08/30/24 08/30/24 History
coQ10 (ubiquinol) 200 mg capsule 200 mg PO TID Supplement 02/01/22 08/30/24 08/30/24 History
dupilumab 300 mg/2 mL subcutaneous 300 mg SC Q2W 02/01/22 08/30/24 7 Days Ago History
pen injector (Dupixent) ~01/25/22
hyoscyamine sulfate 0.125 mg 0.125 mg PO Q4HPRN PRN esophageal 02/01/22 08/30/24 Unknown History
sublingual tablet spamsms
oxycodone-acetaminophen 10 mg-325 1 tab PO Q4H@,,17,21,0100 02/01/22 08/30/24 08/30/24 History
mg tablet
Carnitine 3,000 mg PO DAILY 02/17/23 08/30/24 08/30/24 History
Lactobac no.2-Bifidobac no.1-S. 1 cap PO DAILY 02/17/23 08/30/24 08/30/24 History
thermo 112.5 billion cell capsule
(Visbiome)
aluminum hydrox-magnesium carb 95 5 ml PO Q4HPRN PRN gerd ##0 02/17/23 08/30/24 02/16/23 History
mg-358 mg/15 mL oral suspension
arformoterol 15 mcg/2 mL solution 2 ml inhalation R BID 02/17/23 08/30/24 08/30/24 History
for nebulization (Brovana)
benzonatate 200 mg capsule 200 mg PO TID 02/17/23 08/30/24 08/30/24 History
bumetanide 1 mg tablet 1 mg PO DAILY 02/17/23 08/30/24 08/30/24 History
calcium 500 mg (as 1 tab PO DAILY ##0 02/17/23 08/30/24 08/30/24 History
carbonate)-vitamin D3 10 mcg (400
unit) tablet (Calcium 500 + D)
ipratropium 0.5 mg-albuterol 3 mg 3 ml inhalation R BID 02/17/23 08/30/24 08/30/24 History
(2.5 mg base)/3 mL nebulization
soln
iron bis glycinate guy 28 mg 1 cap PO DAILY@0500 ##0 02/17/23 08/30/24 08/30/24 History
iron-vit C 60 mg-FA 400 mcg-B12
8mcg cap (Gentle Iron)
magnesium oxide 1,000 mg PO BID 02/17/23 08/30/24 08/30/24 History
morphine 30 mg tablet,extended 60 mg PO HS 02/17/23 08/30/24 08/29/24 History
release
niacinamide 500 mg tablet 500 mg PO QPM ##0 02/17/23 08/30/24 08/29/24 History
nystatin 100,000 unit/gram topical 1 applic topical BID apply to 02/17/23 08/30/24 08/30/24 History
cream chest/B/L chest
nystatin 100,000 unit/gram topical 1 applic topical BID apply to 02/17/23 08/30/24 08/30/24 History
powder chest/B/L legs
potassium chloride 20 mEq 20 meq PO TID 02/17/23 08/30/24 08/30/24 History
tablet,extended
release(part/cryst) (Klor-Con M)
prednisone 10 mg tablet 7 mg PO QPM 02/17/23 08/30/24 02/16/23 History
riboflavin (vitamin B2) 50 mg 50 mg PO Q48H 02/17/23 08/30/24 02/16/23 History
tablet (Vitamin B-2)
sennosides 8.6 mg tablet (senna) 8.6 mg PO HS 02/17/23 08/30/24 08/29/24 History
sodium chloride 7 % for 4 ml inhalation R BID 02/17/23 08/30/24 08/30/24 History
nebulization
topiramate 50 mg tablet 150 mg PO HS 02/17/23 08/30/24 08/29/24 History
cetirizine 10 mg tablet (Zyrtec) 10 mg PO DAILY 08/30/24 08/30/24 08/30/24 History
duloxetine 30 mg capsule,delayed 30 mg PO BID 08/30/24 08/30/24 08/30/24 History
release
folic acid 1 mg tablet 2 mg PO HS 08/30/24 08/30/24 08/29/24 History
lidocaine 5 % topical patch 3 patch topical DAILYPRN PRN mild 08/30/24 08/30/24 Unknown History
pain
lqpxqo-svmvafcb-yqiukui 1 cap PO DAILYPRN PRN snacks 08/30/24 08/30/24 Unknown History
36,000-114,000-180,000 unit
capsule,delay rel (Creon)
pvsymu-vrtlbjar-bfxeabj 2 cap PO BID@1200,1800 08/30/24 08/30/24 08/30/24 History
36,000-114,000-180,000 unit
capsule,delay rel (Creon)
Review of Systems
-
Hematologic/Lymphatic: Other (All 14 systems reviewed and negative except as stated above in the history of present illness.)
Vitals / Labs / Diagnostic Testing
Vital Signs
Temp Pulse Resp BP Pulse Ox
98.3 F 77 23 121/72 96
08/31/24 03:49 08/31/24 01:00 08/31/24 01:00 08/31/24 00:18 08/31/24 01:00
Lab Data
08/31/24 03:29
08/31/24 03:29
Laboratory Results
08/30/24
15:39
PT 13.8
INR 1.03
Diagnostic Testing:
Physical Exam
-
HEENT: Normocephalic
Cardiovascular: S1/S2 and Peripheral Edema (1+, bilaterally)
Respiratory: Clear and Other (No wheezing on exam)
GI: Soft
Neurology: Awake and Alert
Skin: Warm
General: Comfortable
Assessment
-
#1. Left lower lobe pneumonia, ventilator associated.
- Agree with continuing meropenem
- Supplemental O2 as needed to keep saturation above 90%
- Tracheal aspirate for Gram stain, cultures, blood cultures
- MRSA screen pending. WBC was elevated at 14.1, down to 9.5 today. Troponin negative.
#2. Chronic hypoxic respiratory failure, s/p Tracheostomy (2017, h/o cardiac arrest and multiple intubations)
- Patient is on trach collar during daytime and ventilator dependent at night
- Continue supplemental O2 as needed
- Patient has 7.0, cuffless Bivona. Silicone tube without inner cannula, changed every 2 months by her physician.
- Prior history of tracheal innominate artery fistula, s/p repair, patient reportedly not supposed to be on any cough tube to decrease local pressure. Minimal leakage noted with her home ventilator through this cuffless tube, will resume her home
vent that her family is planning to bring later today.
#3. History of asthma.
- Current presentation is not suggestive of acute asthma exacerbation
- Continue home medications including aformoterol, budesonide, DuoNeb
- Patient also on Dupixent as outpatient, can resume post discharge
- Patient chronically on low-dose prednisone, continue current dose
#3. History of bronchiectasis
- Continue airway clearance with hypertonic saline nebulized twice a day
- Continue scheduled budesonide aformoterol and DuoNeb
#4. BETH with suspect OHS (BMI 55.1)
- Continue supplemental oxygen
- Ventilator support nightly, status post tracheostomy since 2017
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
Chronic respiratory failure, on home O2 at 6L on 24/7 basis since after tracheostomy in 2017
Asthma, on arformoterol (brovana), dupilimab (dupixent), budesonide: s/p recent flare and 'lung infection'. Follows at [facility] every 3-6 m
Seizure
CABG
Cardiac arrest with multiple intubations, s/p tracheostomy 2016 (PMV during daytime)
BETH
Chronic pain syndrome
Reported primary immunodeficiency disorder
Chronic photophobia
Duquesne syndrome
Non-smoker
Obesity, BMI 55.1
DVT prophylaxis, subcu heparin 5000 units every 8 hours
Total time spent on this consultation/encounter _82___ minutes which includes review of history, physical exam, medications, laboratory data, personal review of imaging, extensive review of outpatient records, discussion with care team and
respiratory therapy.
Data:
CXR 08/2024: . Findings suggestive of left lower lobe pneumonia or subsegmental atelectasis.
2. Cardiomegaly without evidence of decompensated CHF.
CT Head 08/2024: 1. No CT evidence for acute intracranial hemorrhage or transcortical infarct.
2. Mild bilateral frontal and parietal lobe volume loss.
3. Mild white matter leukoaraiosis in both cerebral hemispheres.
4. Low-lying cerebellar tonsils.
CT Chest 02/2023: 1. No overt large central pulmonary embolism within the limitations as described.
2. Focal nodular subpleural consolidation within the anterior right upper lobe measuring up to 2.2 cm, new from 2014. This is favored to represent atelectasis although not definite. Recommend follow-up noncontrast CT chest in 2-3 months versus
further evaluation with dedicated PET/CT.
3. No other significant abnormality identified in the chest, abdomen or pelvis, as described above.
ECHO 02/2023: Technically difficult study - Definity contrast used.
Left ventricular ejection fraction is >75%, by visual assessment. Normal
regional wall motion within the limitations of the study.
Normal right ventricular size and function.
Mitral valve is grossly normal but poorly visualized.
Aortic valve is grossly normal but poorly visualized.
Tricuspid valve is grossly normal but poorly visualized.
No pericardial effusion. Rv Normal
[2024-08-31] MEDS: DUONEB 3 ML INH ×4 (07:43→19:21)
[2024-08-31] MEDS: PULMICORT 1 MG INH ×2 (07:43→15:26)
[2024-08-31] MEDS: PROTONIX 40 MG PO ×2 (08:17→20:47)
[2024-08-31] MEDS: CYMBALTA DELAYED RELEASE 30 MG PO ×2 (08:17→20:48)
[2024-08-31] MEDS: TESSALON PERLES 200 MG PO ×3 (08:17→20:45)
[2024-08-31] MEDS: ZYRTEC 10 MG PO (08:17)
[2024-08-31] MEDS: KCL 20 MEQ PO ×3 (08:17→20:44)
[2024-08-31] MEDS: KEPPRA 750 MG PO ×2 (08:18→20:45)
[2024-08-31] MEDS: MAGNESIUM OXIDE 1000 MG PO ×2 (08:18→20:48)
[2024-08-31] MEDS: MS CONTIN (EXTENDED RELEASE) 45 MG PO (08:18)
[2024-08-31] MEDS: HEPARIN 5000 UNITS SC ×2 (08:19→17:29)
[2024-08-31] MEDS: ALDACTONE 100 MG PO ×2 (08:44→20:46)
[2024-08-31] MEDS: BUMEX 1 MG PO (08:45)
--- NOTE | 2024-08-31 10:00 | PTCARENOTE ---
Assumed care of patient at 0645. Assessment completed and documented in shift assessment.
Patient is pleasant, cooperative and AAOX4. SR on monitor. L CW Port patent, +BR. Bivona #7 Cuffless Trach on Trach Collar with 35% FiO2, lungs coarse/rhonchi with inspiratory and expiratory wheeze. + Strong harsh cough. Obese abdomen, +BS.
Tolerating regular diet. Continent of bowel and bladder on BSC. 1-Person stand by assist with transfers. Skin with fungal/MSAD to groin/abd folds and breast. Old scabs from Shingles virus (started in early/mid July).
Blood cultures x 2 obtained per order. Receiving IV ABX for likely PNA. Awaiting pulmonary and ID evaluation.
--- NOTE | 2024-08-31 10:10 | W.PN.HOSP.TC ---
Today's Communication/Plan
-
IV antibiotics
Assessment / Plan
Assessment / Plan
Physical Exam
General: Acutely ill. No acute distress and Conversant
HEENT: Anicteric, Moist mucous membranes and Tracheostomy Collar
Respiratory: Rhonchi and Non Labored Respirations
Cardiac: S1/S2 and Regular Rhythm
GI: Soft, Non Tender and Other (Protuberant)
Rectal: Deferred by Provider
Musculoskeletal: No Clubbing, No Cyanosis and Other (Compression stockings in place bilaterally)
Skin: Warm and Dry
Neuro: Awake, Alert, Oriented and Nonfocal/grossly intact
Psych: Calm
A/P:
Ventilator-Associated Pneumonia
-Patient is high risk as she is immunocompromised on chronic steroids and has history of bronchiectasis with reports of prior pseudomonas in the past
-Reviewed with infectious disease who recommends meropenem in setting of multiple allergies / adverse reactions--> will get formal ID consult
-Attempt to obtain sputum culture
-Add Mucinex
-Encourage use of incentive spirometer
-Consult respiratory therapy for chest percussion
-Consult Pulmonary for ventilator management
Chronic Hypoxic Respiratory Failure s/p Tracheostomy on Nightly Vent
Asthma / Bronchiectasis
-Continue supplemental oxygen via trach collar
-Continue prednisone as prior to admission
-Continue arformoterol, budesonide, DuoNeb and NaCl nebs
-Patient maintained on Dupixent as outpatient
Syncope, suspect related to hypotension
-Monitor on Telemetry
-Check orthostatic vital signs
Chronic HFpEF / Chronic Lower Ext Lymphedema
-Continue bumetanide and spironolactone
CKD Stage III
-Creatinine seems to be at baseline
Pancreatic Insufficiency
-Continue Creon
Seizure Disorder
-Continue levetiracetam
Hypothyroidism
-Continue levothyroxine
Chronic Pain with Opioid Dependence
-Continue morphine and oxycodone as prior to admission
-Continue duloxetine and topiramate
GERD
-Continue Protonix and Pepcid
Class III Obesity
-Affects all aspects of care
DVT proph: Lovenox
Code Status: Full Code
Total time spent on today's encounter was 55 minutes which included time spent in counseling the patient/family regarding diagnosis and treatment plan as listed above, goals of care, and symptom management. Case was discussed with nursing staff,
specialists, and care coordinators/case management. All labs and imaging personally reviewed by me. Remainder the time spent in detailed review of previous records, lab data, imaging, and other medical provider documentation.
Anticipated Discharge: > 48 hours
Subjective/Interval History
-
Date of Service: August 31, 2024
Patient alert, feels better overall. Afebrile.
Objective Data
-
Labs:
Laboratory Results
08/31/24
03:29
WBC 9.5
Hgb 11.8 L
Hct 36.2 L
Plt Count 248
Sodium 138
Potassium 4.4
Chloride 109 H
Carbon Dioxide 20 L
BUN 21 H
Creatinine 1.3 H
Glucose 108 H
Calcium 9.6
Vital Signs:
Vital Signs
Temp Pulse Resp BP Pulse Ox
97.6 F 73 23 135/83 98
08/31/24 07:59 08/31/24 08:45 08/31/24 08:00 08/31/24 08:45 08/31/24 07:48
[2024-08-31] MEDS: PULMICORT INH (11:03)
--- NOTE | 2024-08-31 15:38 | CON.ID ---
Consultation
-
Date/Time Consultation Requested: 08/30/2024 2200
Date/Time Consultation Performed: 08/31/2024 1452
Requesting Provider: Fernanda Cunningham
Performing Provider: Dr. Lopez
Reason for Consultation: Pneumonia
Chief Complaint / Past History
History of Present Illness
Xin Ramírez is a 53-year-old female being evaluated at the request of Fernanda Cunningham regarding pneumonia. History is obtained from chart review, along with patient interview.
The patient has a significant past medical history of morbid obesity, chronic hypoxemic respiratory failure s/p trach, bronchiectasis and primary immunodeficiency disorder. She presents to the emergency room at [facility] on 08/30 secondary
to shortness of breath, lightheadedness and presyncope.
The patient reports that she follows with ID at [place] for recurrent infections given her underlying history of primary immunodeficiency syndrome. She reports that she receives IVIG every 3 weeks. Yesterday, she was on the phone with her PCP when
she became lightheaded and dizzy. This progressed to feeling she was on the verge of unconsciousness and ultimately her caregiver called 911. She reports that she has had progressive breathing issues for the past several weeks over and above her
baseline issues. She also notes that luis angel recently was started on midodrine by her closed circuit screen watcher, and afterward developed chest pain and nausea. She admits to recent fevers and chills. She admits to some chest pain and ongoing wheezing.
In the emergency room, she was found to have a low-grade white count. Additionally, chest imaging revealed a hazy retrocardiac opacity. She was started on empiric antibiotics, and Infectious Diseases is asked to comment upon further antimicrobial
management.
Past History
Additional Past Medical History:
Chronic Hypoxic Respiratory Failure s/p Tracheostomy
Cardiac Arrest
Asthma / Bronchiectasis
Chronic HFpEF
Essential Hypertension
Hyperlipidemia
Hypothyroidism
Chronic Pancreatic Insufficiency
Chronic Pain Syndrome
Primary Immunodeficiency Disorder
Possible [place]'s
Morbid obesity (BMI = 55)
Additional Past Surgical History:
Section
Tracheostomy
Tracheal Innominate Artery Fistula Repair
Port-a-cath
Allergy History:
amoxicillin Allergy (Verified 08/30/24 15:59)
lip swelling
banana Allergy (Verified 08/30/24 15:59)
Shortness of Breath/asthma
Benzodiazepines Allergy (Verified 08/30/24 15:59)
Unknown
cephalexin (From Keflex) Allergy (Verified 08/30/24 15:59)
Hives
codeine Allergy (Verified 08/30/24 15:59)
Vomiting
cortisone Allergy (Verified 08/30/24 15:59)
Anaphylaxis
diclofenac Allergy (Verified 08/30/24 15:59)
Nausea / Vomiting
diltiazem (From Cardizem) Allergy (Verified 08/30/24 15:59)
severe extremity cramping
doxycycline Allergy (Verified 08/30/24 15:59)
hypersensitive to side effects
fluconazole Allergy (Verified 08/30/24 15:59)
Hives
hydromorphone HCl (From Dilaudid) Allergy (Verified 08/30/24 15:59)
Vomiting
levofloxacin (From Levaquin) Allergy (Verified 08/30/24 15:59)
Unknown
morphine Allergy (Verified 08/30/24 15:59)
Vomiting
nirmatrelvir (From Paxlovid) Allergy (Verified 08/30/24 15:59)
Itching
ritonavir (From Paxlovid) Allergy (Verified 08/30/24 15:59)
Itching
ropinirole HCl (From Requip) Allergy (Verified 08/30/24 15:59)
Vomiting
Jkoucca-SIT-ErG Reductase Inhibitor Allergy (Verified 08/30/24 15:59)
Unknown
sulfamethoxazole (From Bactrim) Allergy (Verified 08/30/24 15:59)
Nausea / Vomiting
trimethoprim (From Bactrim) Allergy (Verified 08/30/24 15:59)
Nausea / Vomiting
Medications Reviewed: Yes
Current Antibiotics:
Meropenem
Social History
Tobacco: Non-Smoker
Alcohol: None
Drug: None
Personal:
Living: With Family
Employment: Not Employed
Family History
Family History: Not Pertinent
Review of Systems
Vital Signs
Temp Pulse Resp BP Pulse Ox
98.0 F 75 14 117/73 98
08/31/24 11:32 08/31/24 15:31 08/31/24 15:31 08/31/24 14:00 08/31/24 15:31
Physical Exam
Physical Exam
Constitutional: No Acute Distress, Comfortable, Chronically Ill, Non-toxic and Obese
Eyes: Pupils Equal, Pupils Round, No Conjunctival Hemorrhage and Sclera Anicteric
Pharynx: Other (Tracheostomy with Passy-Jaycee valve in place.)
Oral: No Thrush and No Ulcers
Cardiovascular: Regular Rate and S1/S2; Negative S3/S4
Pulmonary: Wheezes, Coarse and Non Labored
Gastrointestinal: Soft, Non Tender and Non Distended
Extremities: Edema (Trace); Negative Cyanosis or Erythema
Skin: Warm and Dry; Negative Rash or Jaundice
Neurological: Awake and Alert
Psychological: Calm
Lines: Port
Lab / Diagnostic Study Results
08/31/24 03:29
08/31/24 03:29
Abs Immat Gran (auto) 0.1 10^3/uL (0-0.05) H 08/30/24 15:39
Absolute Neuts (auto) 9.3 10^3/uL (1.4-6.5) H 08/30/24 15:39
Absolute Lymphs (auto) 2.6 10^3/uL (1.2-3.4) 08/30/24 15:39
Absolute Monos (auto) 1.2 10^3/uL (0.1-0.6) H 08/30/24 15:39
Absolute Basos (auto) 0.1 10^3/uL (0-0.2) 08/30/24 15:39
Immature Gran % 0.4 % (0-0.5) 08/30/24 15:39
Neutrophils % 66.0 % (42.2-75.2) 08/30/24 15:39
Lymphocytes % 18.7 % (20.5-51.1) L 08/30/24 15:39
Monocytes % 8.6 % (1.7-9.3) 08/30/24 15:39
Eosinophils % 5.7 % (0-6) 08/30/24 15:39
Basophils % 0.6 % (0-2) 08/30/24 15:39
PT 13.8 Sec (11.4-14.6) 08/30/24 15:39
INR 1.03 08/30/24 15:39
Lactic Acid 1.0 mmol/L (0.7-2.0) 08/30/24 16:20
Microbiology Results
Micro:
08/31/24 09:54 Blood Culture - Pending
Blood/Venous
08/31/24 08:49 Blood Culture - Pending
Blood/Venous
08/30/24 22:31 MRSA Screen - Pending
Nose
Imaging:
08/30/2024 CXR (portable): hazy retrocardiac opacity noted. Haziness of the left hemidiaphragm seen. Mild cardiomegaly noted. Right lung is clear. Please see full dictation for additional detail. Film personally viewed.
Assessment / Plan
Suspected left lower lobe pneumonia
Leukocytosis; improved
Extensive antibiotic allergy list
Hx Pseudomonas from sputum
Chronic Hypoxic Respiratory Failure s/p Tracheostomy
Cardiac Arrest
Asthma / Bronchiectasis
Chronic HFpEF
Essential Hypertension
Hyperlipidemia
Hypothyroidism
Chronic Pancreatic Insufficiency
Chronic Pain Syndrome
Primary Immunodeficiency Disorder
Possible [place]'s
Morbid obesity (BMI = 55)
Recommendations:
Case previously discussed with ER.
Continue with meropenem for today.
Await sputum culture to guide further antimicrobial selection and potential de-escalation.
Follow white count and temperature curve.
Continue with supportive measures.
[2024-08-31] MEDS: DELTASONE 7 MG PO (17:28)
[2024-08-31] MEDS: PULMICORT 0.5 MG INH (19:21)
--- NOTE | 2024-08-31 19:44 | PTCARENOTE ---
Patient aao x3 at start of shift, able to make needs known. Spouse brought in home ventilator. RN notified RT who met with patient and spouse to review waiver. Patient states she has 6/10 pain however pain improved since last pain medication
administration. Patient on trach collar at 35%, pox 97%, lung sounds with rhonchi, inspiratory and expiratory wheezing noted. Call alvarado within reach, will continue to monitor patient closely.
[2024-08-31] MEDS: PEPCID 40 MG PO (20:44)
[2024-08-31] MEDS: SENOKOT 8.6 MG PO (20:45)
[2024-08-31] MEDS: MS CONTIN (EXTENDED RELEASE) 60 MG PO (20:46)
[2024-08-31] MEDS: PRAVACHOL 40 MG PO (20:46)
[2024-08-31] MEDS: TOPAMAX 150 MG PO (20:47)
[2024-09-01] VITALS (15 sets, daily range): BP systolic 111–147; BP diastolic 60–96; PULSE 81–100; BMI 56.0
[2024-09-01] MEDS: HEPARIN 5000 UNITS SC ×3 (00:18→16:43)
[2024-09-01] MEDS: ROXICODONE 10 MG PO ×5 (00:18→22:05)
[2024-09-01] MEDS: STERILE WATER FOR INJECTION 10 ML IV ×4 (03:21→22:25)
[2024-09-01] MEDS: MERREM 500 MG IV ×4 (03:22→22:25)
[2024-09-01] MEDS: SYNTHROID 125 MCG PO (03:22)
[2024-09-01 04:29] LABS: Hematocrit 33.5 % (37.0-47.0); Hemoglobin 11.1 g/dL (12.0-16.0); Mean Corp Hgb Conc. 33.1 g/dL (33.0-37.0); Mean Corpuscular Volume 87.9 fL (81.0-99.0); Nucleated Red Blood Cells % 0 %; Platelet Count 220 10^3/uL (130-400); Red Cell Dist. Width 14.6 % (11.5-14.5)
[2024-09-01 04:45] LABS: Blood Urea Nitrogen 19 mg/dl (7-17); Calcium 9.6 mg/dl (8.4-10.2); Carbon Dioxide 20 mmol/L (22-30); Chloride 109 mmol/L (98-107); Estimated Creatinine Clearance 68 ml/min; Glucose 125 mg/dl (70-99); Potassium 4.6 mmol/L (3.5-5.1); Sodium 134 mmol/L (135-145); eGFR 53.46
[2024-09-01] MEDS: PULMICORT 0.5 MG INH ×2 (07:55→19:37)
[2024-09-01] MEDS: DUONEB 3 ML INH ×3 (07:55→19:37)
[2024-09-01] MEDS: CYMBALTA DELAYED RELEASE 30 MG PO ×2 (08:10→20:46)
[2024-09-01] MEDS: TESSALON PERLES 200 MG PO ×3 (08:10→22:06)
[2024-09-01] MEDS: ZYRTEC 10 MG PO (08:10)
[2024-09-01] MEDS: ALDACTONE 100 MG PO ×2 (08:10→20:47)
[2024-09-01] MEDS: KEPPRA 750 MG PO ×2 (08:10→20:46)
[2024-09-01] MEDS: BUMEX 1 MG PO (08:13)
[2024-09-01] MEDS: DESENEX/MITRAZOL/ZEASORB 1 APPLIC TOPICAL ×2 (08:14→20:47)
[2024-09-01] MEDS: PROTONIX 40 MG PO ×2 (08:14→20:46)
[2024-09-01] MEDS: MS CONTIN (EXTENDED RELEASE) 45 MG PO (08:14)
--- NOTE | 2024-09-01 08:27 | W.PN.HOSP.TC ---
Today's Communication/Plan
-
IV antibiotics. Doppler lower extremities
Assessment / Plan
Assessment / Plan
Physical Exam
General: Acutely ill. No acute distress and Conversant
HEENT: Anicteric, Moist mucous membranes and Tracheostomy Collar
Respiratory: Rhonchi and Non Labored Respirations
Cardiac: S1/S2 and Regular Rhythm
GI: Soft, Non Tender and Other (Protuberant)
Rectal: Deferred by Provider
Musculoskeletal: No Clubbing, No Cyanosis and Other (Compression stockings in place bilaterally)
Skin: Warm and Dry. Lower extremities mild erythema and tender on palpation
Neuro: Awake, Alert, Oriented and Nonfocal/grossly intact
Psych: Calm
A/P:
Ventilator-Associated Pneumonia
-Patient is high risk as she is immunocompromised on chronic steroids and has history of bronchiectasis with reports of prior pseudomonas in the past
-Reviewed with infectious disease who recommends meropenem in setting of multiple allergies / adverse reactions--> appreciated formal ID consult.
- Follow-up sputum culture
-Added Mucinex
-Consult Pulmonary for ventilator management
- Patient also asked conversion disorder and should not be on her records. I do not have that diagnosis on my notes but I asked her to follow-up with Medical Records/HR in am.
Bilateral lower extremity pain and erythema
No clear signs of infection although she is covered with current antibiotics
Probably peripheral neuropathy related
Will check Doppler of both lower extremities to rule out DVT
Chronic Hypoxic Respiratory Failure s/p Tracheostomy on Nightly Vent
Asthma / Bronchiectasis
-Continue supplemental oxygen via trach collar
-Continue prednisone as prior to admission
-Continue arformoterol, budesonide, DuoNeb and NaCl nebs
-Patient maintained on Dupixent as outpatient
- Appreciated pulmonary consult
Syncope, suspect related to hypotension
-Monitor on Telemetry
-Check orthostatic vital signs
Chronic HFpEF / Chronic Lower Ext Lymphedema
-Continue bumetanide and spironolactone
- Monitor renal function and electrolytes
CKD Stage III
-Creatinine seems to be at baseline
Pancreatic Insufficiency
-Continue Creon
Seizure Disorder
-Continue levetiracetam
Hypothyroidism
-Continue levothyroxine
Chronic Pain with Opioid Dependence
-Continue morphine and oxycodone as prior to admission
-Continue duloxetine and topiramate
GERD
-Continue Protonix and Pepcid
Class III Obesity
-Affects all aspects of care
DVT proph: Lovenox
Code Status: Full Code
Time spent 39 minutes
Anticipated Discharge: 24 - 48 hours
Subjective/Interval History
-
Date of Service: September 01, 2024
Patient denies any worsening shortness of breath. She does complain of migraine headache today. She also complains of redness and pain in her legs. No chest pain. Afebrile.
Objective Data
-
Labs:
Laboratory Results
09/01/24
03:34
WBC 10.7
Hgb 11.1 L
Hct 33.5 L
Plt Count 220
Sodium 134 L
Potassium 4.6
Chloride 109 H
Carbon Dioxide 20 L
BUN 19 H
Creatinine 1.2 H
Glucose 125 H
Calcium 9.6
Vital Signs:
Vital Signs
Temp Pulse Resp BP Pulse Ox
98.4 F 74 18 129/78 97
09/01/24 03:39 09/01/24 08:13 09/01/24 08:02 09/01/24 08:13 09/01/24 08:02
I&O
08/31/24 09/01/24 09/02/24
06:59 06:59 06:59
Intake Total 480 / 480
Output Total 375 / 375
Balance 105 / 105
--- NOTE | 2024-09-01 08:29 | PTCARENOTE ---
Received pt at change of shift. RT placed pt from home vent to trach collar at 35%. White thick secretions from suctioning. Pulse ox 95%; lungs coarse with an insp wheeze present. Hygiene provided and desenex placed on MASD in folds. B/l lower
leg +1-2 pitting edema with redness and warmth; tender to the touch. +PP. Scabs to legs, chest, and back present. Call alvarado within reach.
--- NOTE | 2024-09-01 08:42 | RESPNOTE ---
Patient's own vent settings: AC-VC 18 Vt 450 Peep 5 IT 1.0 with O2 6L
--- NOTE | 2024-09-01 09:11 | W.PN.ID1 ---
Date of Service
Date of Service: September 01, 2024
Today's Communication
Continue antibiotics.
Assessment / Plan
Suspected left lower lobe pneumonia
Leukocytosis; improved
Extensive antibiotic allergy list
Hx Pseudomonas from sputum
Chronic Hypoxic Respiratory Failure s/p Tracheostomy
Cardiac Arrest
Asthma / Bronchiectasis
Chronic HFpEF
Essential Hypertension
Hyperlipidemia
Hypothyroidism
Chronic Pancreatic Insufficiency
Chronic Pain Syndrome
Primary Immunodeficiency Disorder
Possible [place]'s
Morbid obesity (BMI = 55)
Recommendations:
Continue with meropenem for today.
Await sputum culture to guide further antimicrobial selection and potential de-escalation.
Follow white count and temperature curve.
Continue with supportive measures.
����������������������������������������������������������
Chief Complaint
-: Pneumonia
Subjective / Review of Systems
Review of Systems: No Fever, No Chills, Cough and Sputum Production
Vital Signs / Physical Exam
Vital Signs
Vital Signs
Temp Pulse Resp BP Pulse Ox
98.4 F 74 18 129/78 97
09/01/24 03:39 09/01/24 08:13 09/01/24 08:02 09/01/24 08:13 09/01/24 08:02
Physical Exam
Constitutional: Comfortable, Chronically Ill and Obese
Cardiovascular: S1/S2; Negative S3/S4
Pulmonary: Coarse and Non Labored
Gastrointestinal: Soft and Non Distended
Neurological: Awake and Alert
Psychological: Calm
Objective Data
Lab Data
Lab Results
09/01/24 03:34
09/01/24 03:34
PT 13.8 Sec (11.4-14.6) 08/30/24 15:39
INR 1.03 08/30/24 15:39
Estimated Creat Clear 68 ml/min 09/01/24 03:34
Lactic Acid 1.0 mmol/L (0.7-2.0) 08/30/24 16:20
Total Bilirubin 0.5 mg/dl (0.2-1.3) 08/30/24 15:39
AST 22 U/L (14-36) 08/30/24 15:39
ALT 20 U/L (0-35) 08/30/24 15:39
Alkaline Phosphatase 111 U/L (38-126) 08/30/24 15:39
Most recent labs reviewed.
Micro Results:
08/31/24 08:49 Blood Culture - Preliminary
Blood/Venous No Growth in 24 hours- Final report to follow
08/30/24 22:31 MRSA Screen - Final
Nose No Methicillin Resistant Staphylococcus aureus isolated.
08/31/24 16:21 Respiratory Culture - Pending
Tracheal Aspirate Gram Stain - Pending
08/31/24 09:54 Blood Culture - Pending
Blood/Venous
Imaging:
08/30/2024 CXR (portable): hazy retrocardiac opacity noted. Haziness of the left hemidiaphragm seen. Mild cardiomegaly noted. Right lung is clear. Please see full dictation for additional detail. Film personally viewed.
[2024-09-01] MEDS: KCL 20 MEQ PO ×3 (09:50→22:06)
[2024-09-01] MEDS: MAGNESIUM OXIDE 1000 MG PO ×2 (09:50→20:47)
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
--- NOTE | 2024-09-01 10:22 | PTCARENOTE ---
Pt c/o migraine starting. Pt normally takes Excedrin Migraine at home. Notified Dr. Clarke. Alfredo ordered and administered to pt.
[2024-09-01] MEDS: FIORICET 1 TAB PO (10:29)
[2024-09-01] MEDS: DUONEB INH (11:45)
--- NOTE | 2024-09-01 15:34 | PTCARENOTE ---
Assumed care of patient at aprox 1100 from night worker nurse. Pt remains in IMU status. Trach collar at 35%. Vent only at night. SR on monitor. Vitals remain stable. Pt ordered US of BL legs and this RN went down and stayed with pt due to oxygen
requirements. Pt with no c/o at this time. Plan of care ongoing.
[2024-09-01] MEDS: DELTASONE 7 MG PO (16:45)
--- NOTE | 2024-09-01 17:19 | PTCARENOTE ---
Pt did not want subQ heparin in abdomen. Stated with her Cushings she has too many striations and it doesn't work. She states everyone has been injecting her arms. I reached out to cross coverage who referred me to pharmacy. Pharmacy stated they did
not recommend using arms. Thigh, or buttocks would be a better place if needed. Injectes given to right thigh. Pt stated that is hurt worse there than arms.
[2024-09-01] MEDS: MS CONTIN (EXTENDED RELEASE) 60 MG PO (22:05)
[2024-09-01] MEDS: PEPCID 40 MG PO (22:06)
[2024-09-01] MEDS: SENOKOT 8.6 MG PO (22:06)
[2024-09-01] MEDS: PRAVACHOL 40 MG PO (22:06)
[2024-09-01] MEDS: TOPAMAX 150 MG PO (22:06)
[2024-09-01] MEDS: FLUSH (NSS) 2 FLUSH IV (22:25)
[2024-09-02] VITALS (12 sets, daily range): BP systolic 106–130; BP diastolic 69–88; BMI 56.2
[2024-09-02] MEDS: HEPARIN 5000 UNITS SC ×3 (00:40→17:59)
[2024-09-02] MEDS: ROXICODONE 10 MG PO ×5 (00:40→20:18)
--- NOTE | 2024-09-02 04:19 | PTCARENOTE ---
Received pt at 2300. Pt AAOx3. Was on trach collar at 35%, provided suction and trach care, transitioned to personal vent. Medications administered with no complaints. Hygiene care provided. Resting in bed with call alvarado in reach.
[2024-09-02] MEDS: MERREM 500 MG IV ×4 (05:19→22:22)
[2024-09-02] MEDS: SYNTHROID 125 MCG PO (05:19)
[2024-09-02] MEDS: STERILE WATER FOR INJECTION 10 ML IV ×4 (05:19→22:22)
[2024-09-02] MEDS: FIORICET 1 TAB PO (05:35)
[2024-09-02 05:45] LABS: Hematocrit 35.7 % (37.0-47.0); Hemoglobin 11.9 g/dL (12.0-16.0); Mean Corp Hgb Conc. 33.3 g/dL (33.0-37.0); Mean Corpuscular Volume 87.7 fL (81.0-99.0); Nucleated Red Blood Cells % 0 %; Platelet Count 254 10^3/uL (130-400); Red Cell Dist. Width 14.4 % (11.5-14.5)
[2024-09-02 06:15] LABS: Blood Urea Nitrogen 23 mg/dl (7-17); Calcium 9.8 mg/dl (8.4-10.2); Carbon Dioxide 23 mmol/L (22-30); Chloride 106 mmol/L (98-107); Estimated Creatinine Clearance 64 ml/min; Glucose 104 mg/dl (70-99); Potassium 4.6 mmol/L (3.5-5.1); Sodium 135 mmol/L (135-145); eGFR 48.56
[2024-09-02] MEDS: PULMICORT 0.5 MG INH ×2 (07:41→19:36)
[2024-09-02] MEDS: DUONEB 3 ML INH ×4 (07:42→19:36)
[2024-09-02] MEDS: KEPPRA 750 MG PO ×2 (08:24→20:18)
[2024-09-02] MEDS: BUMEX 1 MG PO (08:24)
[2024-09-02] MEDS: MS CONTIN (EXTENDED RELEASE) 45 MG PO (08:24)
[2024-09-02] MEDS: CYMBALTA DELAYED RELEASE 30 MG PO ×2 (08:24→20:18)
[2024-09-02] MEDS: PROTONIX 40 MG PO ×2 (08:24→20:18)
[2024-09-02] MEDS: KCL 20 MEQ PO ×3 (08:24→22:23)
[2024-09-02] MEDS: TESSALON PERLES 200 MG PO ×3 (08:25→22:23)
[2024-09-02] MEDS: MAGNESIUM OXIDE 1000 MG PO ×2 (08:25→20:19)
[2024-09-02] MEDS: ALDACTONE 100 MG PO ×2 (08:25→20:18)
[2024-09-02] MEDS: ZYRTEC 10 MG PO (08:25)
[2024-09-02] MEDS: DESENEX/MITRAZOL/ZEASORB 1 APPLIC TOPICAL ×2 (08:26→20:19)
--- NOTE | 2024-09-02 08:51 | W.PN.HOSP.TC ---
Today's Communication/Plan
-
Respiratory culture came back positive for Pseudomonas.
continue antibiotic.
Assessment / Plan
Assessment / Plan
Impression:
Patient is a 53 y/o female with a very complicated medical history including cardiac arrest requiring multiple intubations and evaluate tracheostomy placed, asthma, bronchiectasis, heart failure, chronic kidney disease and chronic pain syndrome who
presents following a syncopal episode. Patient reports she was having a telemedicine visit with her PCP in followup for a recent episode of shingles. During the visit she developed lightheadedness and passed out. EMS was called who found her blood
pressure to be on the low side.
Chest x-ray consistent with pneumonia, patient started on IV antibiotic, pulmonary and ID consulted.
Respiratory culture came back positive for Pseudomonas.
Assessment/plan:
Ventilator-Associated Pneumonia
-Patient is high risk as she is immunocompromised on chronic steroids and has history of bronchiectasis with reports of prior pseudomonas in the past
-Reviewed with infectious disease who recommends meropenem in setting of multiple allergies / adverse reactions--> appreciated formal ID consult.
-Added Mucinex
-Consult Pulmonary for ventilator management
- Respiratory culture came back positive for Pseudomonas.
Bilateral lower extremity pain and erythema
No clear signs of infection although she is covered with current antibiotics
Probably peripheral neuropathy related
Doppler of both lower extremities negative for DVT
Chronic Hypoxic Respiratory Failure s/p Tracheostomy on Nightly Vent
Asthma / Bronchiectasis
-Continue supplemental oxygen via trach collar
-Continue prednisone as prior to admission
-Continue arformoterol, budesonide, DuoNeb and NaCl nebs
-Patient maintained on Dupixent as outpatient
- Appreciated pulmonary consult
Syncope, suspect related to hypotension
-Monitor on Telemetry
-Check orthostatic vital signs
Chronic HFpEF / Chronic Lower Ext Lymphedema
-Continue bumetanide and spironolactone
- Monitor renal function and electrolytes
CKD Stage III
-Creatinine seems to be at baseline
Pancreatic Insufficiency
-Continue Creon
Seizure Disorder
-Continue levetiracetam
Hypothyroidism
-Continue levothyroxine
Chronic Pain with Opioid Dependence
-Continue morphine and oxycodone as prior to admission
-Continue duloxetine and topiramate
GERD
-Continue Protonix and Pepcid
Class III Obesity
-Affects all aspects of care
CODE STATUS: Full code
DVT prophylaxis: Lovenox
Diet: Regular diet.
Total time spent on today's encounter was 65 minutes which included time spent in counseling the patient/family regarding diagnosis and treatment plan as listed above, goals of care, and symptom management. Case was discussed with nursing staff,
specialists, and care coordinators/case management. All labs and imaging personally reviewed by me. Remainder the time spent in detailed review of previous records, lab data, imaging, and other medical provider documentation.
Anticipated Discharge: > 48 hours
Subjective/Interval History
-
Date of Service: September 02, 2024
Patient seen and examined at bedside, denies any chest pain , coughing and shortness of breath Improved, no abdominal pain, no nausea, no vomiting, no diarrhea or constipation.
Respiratory culture came back positive for Pseudomonas.
Objective Data
-
Labs:
Laboratory Results
09/02/24
05:31
WBC 11.9 H
Hgb 11.9 L
Hct 35.7 L
Plt Count 254
Sodium 135
Potassium 4.6
Chloride 106
Carbon Dioxide 23
BUN 23 H
Creatinine 1.3 H
Glucose 104 H
Calcium 9.8
Vital Signs:
Vital Signs
Temp Pulse Resp BP Pulse Ox
98 F 80 18 115/76 97
09/02/24 07:13 09/02/24 07:42 09/02/24 07:42 09/02/24 04:00 09/02/24 07:42
I&O
09/01/24 09/02/24 09/03/24
06:59 06:59 06:59
Intake Total 480 / 480
Output Total 375 / 375
Balance 105 / 105
Physical Exam
-
General: Well Developed, Comfortable and Morbidly Obese
HEENT: Normocephalic, Atraumatic, Moist Mucous Membranes, No Ptosis, PERRLA, Nose Appears Normal and Other (Trach)
Respiratory: Rales, Rhonchi and Non Labored Respirations
Cardiac: Regular Rhythm and S1/S2
Breast: Deferred by me
GI: Soft, Nontender, Nondistended and Normal Bowel Sounds
Genito-urinary: No Costovertebral Tender
Musculoskeletal: No Clubbing, No Cyanosis, Edema, Right Lower Extrem and Edema, Left Lower Extrem
Skin: Warm
Neuro: Awake, Alert, Oriented, AO x 3 and No Motor Deficits
Psych: Calm
Data Reviewed
-
Diagnostic Radiology: Image personally visualized and interpreted and Report Reviewed by me
CT Scan: Image personally visualized and interpreted and Report Reviewed by me
Ultrasound: Image personally visualized and interpreted and Report Reviewed by me
MRI: Image personally visualized and interpreted and Report Reviewed by me
Medical Tests (Nuc Med, Echo etc): Image personally visualized and interpreted and Report Reviewed by me
Labs: Labs Reviewed by me
Old Records: Reviewed
--- NOTE | 2024-09-02 10:14 | W.PN.ID1 ---
Date of Service
Date of Service: September 02, 2024
Today's Communication
Continue antibiotics.
Assessment / Plan
Suspected left lower lobe pneumonia
Leukocytosis; improved
Extensive antibiotic allergy list
Hx Pseudomonas from sputum
Chronic Hypoxic Respiratory Failure s/p Tracheostomy
Cardiac Arrest
Asthma / Bronchiectasis
Chronic HFpEF
Essential Hypertension
Hyperlipidemia
Hypothyroidism
Chronic Pancreatic Insufficiency
Chronic Pain Syndrome
Primary Immunodeficiency Disorder
Possible [place]'s
Morbid obesity (BMI = 55)
Recommendations:
Continue with meropenem (d#4) for today.
Await sputum culture.
- De-escalation will be quite difficult as patient is allergic to PCN's, cephalosporins, doxycycline, fluoroquinolones, sulfa
Follow white count and temperature curve.
Continue with supportive measures.
����������������������������������������������������������
Chief Complaint
-: Pneumonia
Subjective / Review of Systems
Patient seen and examined. Reports breathing is more comfortable today. Denies fevers or chills. Minimal cough.
Review of Systems: No Fever and No Chills
Vital Signs / Physical Exam
Vital Signs
Vital Signs
Temp Pulse Resp BP Pulse Ox
98 F 80 18 115/76 97
09/02/24 07:13 09/02/24 07:42 09/02/24 07:42 09/02/24 04:00 09/02/24 07:42
Physical Exam
Constitutional: Comfortable, Chronically Ill and Obese
Oropharyngeal: Other (Tracheostomy with trach collar in place.)
Cardiovascular: S1/S2; Negative S3/S4
Pulmonary: Coarse and Non Labored
Gastrointestinal: Soft and Non Distended
Extremities: Edema; Negative Cyanosis or Erythema
Skin: Warm and Dry; Negative Rash
Neurological: Awake and Alert
Psychological: Calm
Objective Data
Lab Data
Lab Results
09/02/24 05:31
09/02/24 05:31
PT 13.8 Sec (11.4-14.6) 08/30/24 15:39
INR 1.03 08/30/24 15:39
Estimated Creat Clear 64 ml/min 09/02/24 05:31
Lactic Acid 1.0 mmol/L (0.7-2.0) 08/30/24 16:20
Total Bilirubin 0.5 mg/dl (0.2-1.3) 08/30/24 15:39
AST 22 U/L (14-36) 08/30/24 15:39
ALT 20 U/L (0-35) 08/30/24 15:39
Alkaline Phosphatase 111 U/L (38-126) 08/30/24 15:39
Most recent labs reviewed.
Micro Results:
08/31/24 08:49 Blood Culture - Preliminary
Blood/Venous No Growth in 48 hours- Final report to follow
08/31/24 16:21 Respiratory Culture - Pending
Tracheal Aspirate Gram Stain - Preliminary
08/31/24 09:54 Blood Culture - Preliminary
Blood/Venous No Growth in 24 hours- Final report to follow
08/30/24 22:31 MRSA Screen - Final
Nose No Methicillin Resistant Staphylococcus aureus isolated.
Imaging:
08/30/2024 CXR (portable): hazy retrocardiac opacity noted. Haziness of the left hemidiaphragm seen. Mild cardiomegaly noted. Right lung is clear. Please see full dictation for additional detail. Film personally viewed.
Care Review
Plan reviewed with: Physician (Hospitalist)
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
--- NOTE | 2024-09-02 11:10 | CM ---
Patient with Hx vent/trach with Dx Ventilator-Associated Pneumonia. O2 6L. Trilogy vent HS, trach collar. Receiving IV meropenum, , MS Contin, Roxicodone. Per nurse; A/O. PT Screen; no needs, transfers independently.
Met with patient who resides with her in a 1 story house with ramp at entrance.
The patient is assisted with ADLs and is able to ambulate short distances (20 feet) using her RW to the [facility] bathroom.
Caregivers from [facility] (through [place]) provide 96 hrs/week care from 9a-11pm , 7 days/week.
Caregivers assist with showers, meals, appointments and errands.
Her assists her at night as needed, and he works 2 jobs, but is 5 mins from home at night if she needs him.
Patient also shares she wears a medic alert.
Her usually transport her home from hospital via their van.
DME - Kitty Trilogy vent through [facility] (here at bedside), home O2 10 L concentrator (baseline use 6L) through [facility], uncuffed trach, suction equipment, hospital bed, power w/c, RW.
Patient states she receives IVIG home infusions via her Port through [facility] for primary immune deficiency disease.
She also receives IV Abx prn via her Port through [facility].
No prior VN - offered VN and patient declined.
Prior [facility], prior [facility].
PCP - Uma Gabriel
Pharmacy - [facility], [place]
CM continuing to follow for d/c needs.
Plan home.
--- NOTE | 2024-09-02 13:56 | PTOTSP ---
Dysphagia Evaluation
Patient with elevated risk factors for dysphagia/silent aspiration (history of bilateral vocal fold dysfunction with chronic trach; reported GI conditions such as 'sphincter dysfunction' and 'delayed emptying'). No signs concerning significant
dysphagia observed. No s/s of aspiration though silent aspiration cannot be ruled out bedside. Patient denied any recent repeated respiratory infections, new dysphagia, and declined instrumental testing.
Recommend:
1. IDDSI 7 Regular, Thin Liquids
2. Medications: as best tolerated
3. Strategies: PMV on for PO intake, patient to pick soft foods and cut into small pieces given edentulous status, upright to 90 degrees, small sips/bites, slow rate, remain upright for 30 minutes after PO intake
4. Will sign off. Please reconsult as appropriate.
[2024-09-02] MEDS: DELTASONE 7 MG PO (17:57)
--- NOTE | 2024-09-02 20:00 | PTCARENOTE ---
Patient received in bed, AAOX3, MACE, OOB x1. NSR on monitor, trace edema noted. #7 bivona trach, 35% trach collar, patient performs on trach care. Lungs coarse. Abdomen obsese. voids. left SC port flushed with good blood return.
[2024-09-02] MEDS: MS CONTIN (EXTENDED RELEASE) 60 MG PO (22:22)
[2024-09-02] MEDS: SENOKOT 8.6 MG PO (22:22)
[2024-09-02] MEDS: PRAVACHOL 40 MG PO (22:22)
[2024-09-02] MEDS: PEPCID 40 MG PO (22:23)
--- NOTE | 2024-09-02 23:51 | RESPNOTE ---
Pt placed on own vent. with 6L O2 bleed in.
[2024-09-02] MEDS: TOPAMAX 150 MG PO (23:59)
[2024-09-03] VITALS (12 sets, daily range): BP systolic 102–145; BP diastolic 51–90; BMI 55.8
--- NOTE | 2024-09-03 02:23 | DOWNTIME ---
There was a [employer] Client [employer]print [employer]st Downtime on 09/03/2024 from 0100 to 09/03/2024 at 0220. Downtime documentation of patient's care, including medication administrations, has been reconciled in the electronic record per guidelines. Refer to the
patient's paper chart under the miscellaneous tab to see printed paper medication records and downtime forms.
[2024-09-03] MEDS: STERILE WATER FOR INJECTION 10 ML IV ×4 (04:31→21:25)
[2024-09-03] MEDS: MERREM 500 MG IV ×4 (04:31→21:25)
[2024-09-03] MEDS: SYNTHROID 125 MCG PO (05:26)
[2024-09-03 05:43] LABS: Hematocrit 32.4 % (37.0-47.0); Hemoglobin 10.9 g/dL (12.0-16.0); Mean Corp Hgb Conc. 33.6 g/dL (33.0-37.0); Mean Corpuscular Volume 86.2 fL (81.0-99.0); Platelet Count 220 10^3/uL (130-400); Red Cell Dist. Width 14.6 % (11.5-14.5)
[2024-09-03 06:04] LABS: Blood Urea Nitrogen 23 mg/dl (7-17); Calcium 9.5 mg/dl (8.4-10.2); Carbon Dioxide 21 mmol/L (22-30); Chloride 108 mmol/L (98-107); Estimated Creatinine Clearance 75 ml/min; Glucose 109 mg/dl (70-99); Potassium 4.8 mmol/L (3.5-5.1); Sodium 134 mmol/L (135-145); eGFR 59.34
[2024-09-03] MEDS: PULMICORT 0.5 MG INH ×2 (08:01→19:40)
[2024-09-03] MEDS: DUONEB 3 ML INH ×4 (08:01→19:40)
[2024-09-03] MEDS: TESSALON PERLES 200 MG PO ×3 (08:34→21:21)
[2024-09-03] MEDS: BUMEX 1 MG PO (08:34)
[2024-09-03] MEDS: MS CONTIN (EXTENDED RELEASE) 45 MG PO (08:34)
[2024-09-03] MEDS: MAGNESIUM OXIDE 1000 MG PO ×2 (08:34→21:24)
[2024-09-03] MEDS: ALDACTONE 100 MG PO ×2 (08:34→21:23)
[2024-09-03] MEDS: PROTONIX 40 MG PO ×2 (08:35→21:22)
[2024-09-03] MEDS: ZYRTEC 10 MG PO (08:35)
[2024-09-03] MEDS: KEPPRA 750 MG PO ×2 (08:35→21:23)
[2024-09-03] MEDS: KCL 20 MEQ PO ×3 (08:35→21:20)
[2024-09-03] MEDS: CYMBALTA DELAYED RELEASE 30 MG PO ×2 (08:35→21:25)
[2024-09-03] MEDS: HEPARIN 5000 UNITS SC ×4 (08:36→23:17)
[2024-09-03] MEDS: DESENEX/MITRAZOL/ZEASORB 1 APPLIC TOPICAL ×2 (08:36→21:26)
--- NOTE | 2024-09-03 09:00 | PTCARENOTE ---
Patient had more coughing than usual this morning. Patient using suction kit to suction a moderate amount of thick yellow/green sputum. Pt reports feeling better following suction and cough calmed down. Madi Joiner given per MAR. Assessment,
care and VS as charted.
--- NOTE | 2024-09-03 09:25 | W.PN.ID1 ---
Date of Service
Date of Service: September 03, 2024
Today's Communication
Continue antibiotics. See below�
Assessment / Plan
Suspected left lower lobe pneumonia
Leukocytosis; improved
Extensive antibiotic allergy list
Hx Pseudomonas from sputum
Chronic Hypoxic Respiratory Failure s/p Tracheostomy
Cardiac Arrest
Asthma / Bronchiectasis
Chronic HFpEF
Essential Hypertension
Hyperlipidemia
Hypothyroidism
Chronic Pancreatic Insufficiency
Chronic Pain Syndrome
Primary Immunodeficiency Disorder
Possible [place]'s
Morbid obesity (BMI = 55)
Recommendations:
Patient appears clinically improved.
Sensitivity of recovered Pseudomonas reviewed, and isolate is pansensitive.
- De-escalation, though, very difficult given that patient is allergic to PCN's, cephalosporins, doxycycline, fluoroquinolones, sulfa.
Continue with meropenem (d#5) to complete a 7 day course.
Continue with supportive measures.
����������������������������������������������������������
Chief Complaint
-: Pneumonia
Subjective / Review of Systems
Patient seen and examined. Reports feeling improved.
Review of Systems: No Fever and No Chills
Vital Signs / Physical Exam
Vital Signs
Vital Signs
Temp Pulse Resp BP Pulse Ox
98.4 F 86 27 102/51 94
09/03/24 03:03 09/03/24 09:00 09/03/24 09:00 09/03/24 08:34 09/03/24 09:00
Physical Exam
Constitutional: Comfortable, Chronically Ill and Obese
Oropharyngeal: Other (Tracheostomy with trach collar in place.)
Cardiovascular: S1/S2; Negative S3/S4
Pulmonary: Coarse and Non Labored
Gastrointestinal: Soft and Non Distended
Extremities: Edema; Negative Cyanosis or Erythema
Skin: Warm and Dry; Negative Rash
Neurological: Awake and Alert
Psychological: Calm
Objective Data
Lab Data
Lab Results
09/03/24 05:30
09/03/24 05:30
PT 13.8 Sec (11.4-14.6) 08/30/24 15:39
INR 1.03 08/30/24 15:39
Estimated Creat Clear 75 ml/min 09/03/24 05:30
Lactic Acid 1.0 mmol/L (0.7-2.0) 08/30/24 16:20
Total Bilirubin 0.5 mg/dl (0.2-1.3) 08/30/24 15:39
AST 22 U/L (14-36) 08/30/24 15:39
ALT 20 U/L (0-35) 08/30/24 15:39
Alkaline Phosphatase 111 U/L (38-126) 08/30/24 15:39
Most recent labs reviewed.
Micro Results:
08/31/24 16:21 Respiratory Culture - Preliminary
Tracheal Aspirate Pseudomonas aeruginosa
Gram Stain - Preliminary
08/31/24 09:54 Blood Culture - Preliminary
Blood/Venous No Growth in 48 hours- Final report to follow
08/31/24 08:49 Blood Culture - Preliminary
Blood/Venous No Growth in 48 hours- Final report to follow
08/30/24 22:31 MRSA Screen - Final
Nose No Methicillin Resistant Staphylococcus aureus isolated.
Imaging:
08/30/2024 CXR (portable): hazy retrocardiac opacity noted. Haziness of the left hemidiaphragm seen. Mild cardiomegaly noted. Right lung is clear. Please see full dictation for additional detail. Film personally viewed.
--- NOTE | 2024-09-03 09:59 | W.PN.PUL.V3 ---
Today's Communication / Plan
-
Wean oxygen
Nocturnal ventilation
No change in prednisone
Continue finite course of antibiotics
Outpatient pulmonary [id number]
Assessment
-
#1. Left lower lobe pneumonia, ventilator associated.
- Agree with continuing meropenem, ID service on case-correspondence [id number] will be quite difficult as patient is allergic to penicillins, cephalosporins, doxycycline, fluoroquinolones, and sulfa
- Supplemental O2 as needed to keep saturation above 90%
- Tracheal aspirate positive for Pseudomonas
- MRSA screen negative, elevated WBC count improved.
- Will consider repeat chest x-ray in the next several days
#2. Chronic hypoxic respiratory failure, s/p Tracheostomy (2017, h/o cardiac arrest and multiple intubations)
- Patient is on trach collar during daytime and ventilator dependent at night
- Continue supplemental O2 as needed
- Patient has 7.0, cuffless Bivona. Silicone tube without inner cannula, changed every 2 months by her physician.
- Prior history of tracheal innominate artery fistula, s/p repair, patient reportedly not supposed to be on any cuffed tube to decrease local pressure. Minimal leakage noted with her home ventilator through this cuffless tube, continue patient's
home ventilator.
#3. History of asthma.
- Current presentation is not suggestive of acute asthma exacerbation
- Continue home medications including aformoterol, budesonide, DuoNeb
- Patient also on Dupixent as outpatient, can resume post discharge
- Patient chronically on low-dose prednisone, continue current dose-7 mg daily-5 mg in the morning and 2 mg at night
- Follow-up [facility]
#3. History of bronchiectasis
- Continue airway clearance with hypertonic saline nebulized twice a day
- Continue scheduled budesonide aformoterol and DuoNeb
#4. BETH with suspect OHS (BMI 55.1)
- Continue supplemental oxygen
- Ventilator support nightly, status post tracheostomy since 2017
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
Chronic respiratory failure, on home O2 at 6L on 24/7 basis since after tracheostomy in 2017
Asthma, on arformoterol (brovana), dupilimab (dupixent), budesonide: s/p recent flare and 'lung infection'. Follows at [facility] every 3-6 m
Seizure
CABG
Cardiac arrest with multiple intubations, s/p tracheostomy 2017 (PMV during daytime)
BETH
Chronic pain syndrome
Reported primary immunodeficiency disorder
Chronic photophobia
Herb syndrome
Non-smoker
Obesity, BMI 55.1
DVT prophylaxis, subcu heparin 5000 units every 8 hours
Data:
CXR 08/2024: . Findings suggestive of left lower lobe pneumonia or subsegmental atelectasis.
2. Cardiomegaly without evidence of decompensated CHF.
CT Head 08/2024: 1. No CT evidence for acute intracranial hemorrhage or transcortical infarct.
2. Mild bilateral frontal and parietal lobe volume loss.
3. Mild white matter leukoaraiosis in both cerebral hemispheres.
4. Low-lying cerebellar tonsils.
CT Chest 02/2023: 1. No overt large central pulmonary embolism within the limitations as described.
2. Focal nodular subpleural consolidation within the anterior right upper lobe measuring up to 2.2 cm, new from 2014. This is favored to represent atelectasis although not definite. Recommend follow-up noncontrast CT chest in 2-3 months versus
further evaluation with dedicated PET/CT.
3. No other significant abnormality identified in the chest, abdomen or pelvis, as described above.
ECHO 02/2023: Technically difficult study - Definity contrast used.
Left ventricular ejection fraction is >75%, by visual assessment. Normal
regional wall motion within the limitations of the study.
Normal right ventricular size and function.
Mitral valve is grossly normal but poorly visualized.
Aortic valve is grossly normal but poorly visualized.
Tricuspid valve is grossly normal but poorly visualized.
No pericardial effusion. Rv Normal
Subjective Data
-
Date of Service:
Date of Service: September 03, 2024
Chief Complaint: Pulmonary Follow Up and Dyspnea Follow Up
Subjective:
Feels better, tolerated nocturnal ventilation-has own unit, no increased secretions, chest congestion, chest pain or abdominal pain
Review of Systems
General: Other (Per HPI)
Objective Data
Data Reviewed
Vital Signs / I&O:
Vital Signs
Temp Pulse Resp BP Pulse Ox
98.4 F 86 27 102/51 94
09/03/24 03:03 09/03/24 09:00 09/03/24 09:00 09/03/24 08:34 09/03/24 09:00
SaO2: 94
Nasal Cannula flow liters per minute: 6
Physical Exam
General: Respiratory Distress (n) and Comfortable
HEENT: Normocephalic and Anicteric
Cardiovascular: Regular Rhythm
Respiratory: Wheeze (n), Crackles (n), Rhonchi, Non-Labored Respirations and Other (Tracheotomy)
GI: Soft and Non Distended (Morbidly obese)
Neurology: Awake, Alert and No Motor Deficits (Moves all extremities)
Skin: Warm, Good Color, Cyanosis (n), Jaundice (n) and Rash (n)
Labs/Micro/Reports
Lab Data
09/03/24 05:30
09/03/24 05:30
Microbiology
08/31/24 16:21 Tracheal Aspirate Respiratory Culture - Preliminary
Pseudomonas aeruginosa
08/31/24 16:21 Tracheal Aspirate Gram Stain - Preliminary
08/31/24 09:54 Blood/Venous Blood Culture - Preliminary
No Growth in 48 hours- Final report to follow
08/31/24 08:49 Blood/Venous Blood Culture - Preliminary
No Growth in 48 hours- Final report to follow
08/30/24 22:31 Nose MRSA Screen - Final
No Methicillin Resistant Staphylococcus aureus isolated.
[2024-09-03] MEDS: ROXICODONE 10 MG PO ×5 (10:17→21:24)
--- NOTE | 2024-09-03 14:22 | W.PN.HOSP.TC ---
Today's Communication/Plan
-
To complete 7 days of meropenem in the hospital, discharge on 09/05
Assessment / Plan
Assessment / Plan
Impression:
Patient is a 53 y/o female with a very complicated medical history including cardiac arrest requiring multiple intubations and evaluate tracheostomy placed, asthma, bronchiectasis, heart failure, chronic kidney disease and chronic pain syndrome who
presents following a syncopal episode. Patient reports she was having a telemedicine visit with her PCP in followup for a recent episode of shingles. During the visit she developed lightheadedness and passed out. EMS was called who found her blood
pressure to be on the low side.
Chest x-ray consistent with pneumonia, patient started on IV antibiotic, pulmonary and ID consulted.
Respiratory culture came back positive for Pseudomonas.
Assessment/plan:
Ventilator-Associated Pneumonia
-Patient is high risk as she is immunocompromised on chronic steroids and has history of bronchiectasis with reports of prior pseudomonas in the past
-Reviewed with infectious disease who recommends meropenem in setting of multiple allergies / adverse reactions--> appreciated formal ID consult.
-Added Mucinex
-Consult Pulmonary for ventilator management
- Respiratory culture came back positive for pansensitive Pseudomonas.
Continue meropenem 06/19
Bilateral lower extremity pain and erythema
No clear signs of infection although she is covered with current antibiotics
Probably peripheral neuropathy related
Doppler of both lower extremities negative for DVT
Chronic Hypoxic Respiratory Failure s/p Tracheostomy on Nightly Vent
Asthma / Bronchiectasis
-Continue supplemental oxygen via trach collar
-Continue prednisone as prior to admission
-Continue arformoterol, budesonide, DuoNeb and NaCl nebs
-Patient maintained on Dupixent as outpatient
- Appreciated pulmonary consult
Syncope, suspect related to hypotension
-Monitor on Telemetry
-Check orthostatic vital signs
Chronic HFpEF / Chronic Lower Ext Lymphedema
-Continue bumetanide and spironolactone
- Monitor renal function and electrolytes
CKD Stage III
-Creatinine seems to be at baseline
Pancreatic Insufficiency
-Continue Creon
Seizure Disorder
-Continue levetiracetam
Hypothyroidism
-Continue levothyroxine
Chronic Pain with Opioid Dependence
-Continue morphine and oxycodone as prior to admission
-Continue duloxetine and topiramate
GERD
-Continue Protonix and Pepcid
Class III Obesity
-Affects all aspects of care
CODE STATUS: Full code
DVT prophylaxis: Lovenox
Diet: Regular diet.
Total time spent on today's encounter was 65 minutes which included time spent in counseling the patient/family regarding diagnosis and treatment plan as listed above, goals of care, and symptom management. Case was discussed with nursing staff,
specialists, and care coordinators/case management. All labs and imaging personally reviewed by me. Remainder the time spent in detailed review of previous records, lab data, imaging, and other medical provider documentation.
Anticipated Discharge: 24 - 48 hours
Subjective/Interval History
-
Date of Service: September 03, 2024
Patient seen and examined at bedside, denies any chest pain , shortness of breath and cough improved, no abdominal pain, no nausea, no vomiting, no diarrhea or constipation.
Culture came back Pseudomonas, pansensitive
Objective Data
-
Labs:
Laboratory Results
09/03/24
05:30
WBC 9.4
Hgb 10.9 L
Hct 32.4 L
Plt Count 220
Sodium 134 L
Potassium 4.8
Chloride 108 H
Carbon Dioxide 21 L
BUN 23 H
Creatinine 1.1 H
Glucose 109 H
Calcium 9.5
Vital Signs:
Vital Signs
Temp Pulse Resp BP Pulse Ox
97.7 F 84 16 136/90 94
09/03/24 11:55 09/03/24 14:15 09/03/24 14:15 09/03/24 12:00 09/03/24 14:15
I&O
09/02/24 09/03/24 09/04/24
06:59 06:59 06:59
Intake Total 720 / 720
Balance 720 / 720
Physical Exam
-
General: Well Developed, Comfortable and Morbidly Obese
HEENT: Normocephalic, Atraumatic, Moist Mucous Membranes, No Ptosis, PERRLA, Nose Appears Normal and Other (Trach)
Respiratory: Rales, Rhonchi and Non Labored Respirations
Cardiac: Regular Rhythm and S1/S2
Breast: Deferred by me
GI: Soft, Nontender, Nondistended and Normal Bowel Sounds
Genito-urinary: No Costovertebral Tender
Musculoskeletal: No Clubbing, No Cyanosis, Edema, Right Lower Extrem and Edema, Left Lower Extrem
Skin: Warm
Neuro: Awake, Alert, Oriented, AO x 3 and No Motor Deficits
Psych: Calm
Data Reviewed
-
Diagnostic Radiology: Image personally visualized and interpreted and Report Reviewed by me
CT Scan: Image personally visualized and interpreted and Report Reviewed by me
Ultrasound: Image personally visualized and interpreted and Report Reviewed by me
MRI: Image personally visualized and interpreted and Report Reviewed by me
Medical Tests (Nuc Med, Echo etc): Image personally visualized and interpreted and Report Reviewed by me
Labs: Labs Reviewed by me
Old Records: Reviewed
--- NOTE | 2024-09-03 16:34 | VATNOTE ---
called to change dressing on port. bottom section flapping up. Redressed with new dressing. Caps nor stat lock nor biopatch due to be changed until monday.
[2024-09-03] MEDS: DELTASONE 7 MG PO (17:00)
[2024-09-03] MEDS: NON-FORMULARY ITEM INH (20:15)
[2024-09-03] MEDS: SENOKOT 8.6 MG PO (21:20)
[2024-09-03] MEDS: TOPAMAX 150 MG PO (21:21)
[2024-09-03] MEDS: PEPCID 40 MG PO (21:23)
[2024-09-03] MEDS: MS CONTIN (EXTENDED RELEASE) 60 MG PO (21:24)
[2024-09-03] MEDS: PRAVACHOL 40 MG PO (21:24)
[2024-09-04] VITALS (11 sets, daily range): BP systolic 110–137; BP diastolic 60–89; BMI 55.6
[2024-09-04] MEDS: ROXICODONE 10 MG PO ×5 (01:06→21:17)
[2024-09-04] MEDS: SYNTHROID 125 MCG PO (05:17)
[2024-09-04] MEDS: STERILE WATER FOR INJECTION 10 ML IV ×4 (05:17→21:19)
[2024-09-04] MEDS: MERREM 500 MG IV ×4 (05:17→21:18)
--- NOTE | 2024-09-04 06:07 | PTCARENOTE ---
No acute changes overnight. #7 Bivona cuffless trach in place. PMV off HS. Tolerated Trilogy vent from home; AC-VC RR 18/ Vt 450 / PEEP 5 with 6L 02 bleed in. Pt performs deep suctioning and trach care independently. WRIGHT when OOB to BSC. Sp02 WNL.
Swallowing pills w/ water & pudding w/o issues. NSR/ST on telemetry. No gi/gu complaints. Left CW port dressing intact, + blood return. Repositioning self while in bed. Reports chronic pain to back that is unchanged. Pt able to make needs known.
call alvarado and tray table within reach.
[2024-09-04] MEDS: PULMICORT 0.5 MG INH ×2 (07:54→20:18)
[2024-09-04] MEDS: NON-FORMULARY ITEM 4 ML INH ×2 (08:04→20:21)
[2024-09-04] MEDS: DUONEB 3 ML INH ×3 (08:04→20:18)
[2024-09-04] MEDS: HEPARIN 5000 UNITS SC ×2 (09:12→16:57)
[2024-09-04] MEDS: CYMBALTA DELAYED RELEASE 30 MG PO ×2 (09:13→21:15)
[2024-09-04] MEDS: ALDACTONE 100 MG PO ×2 (09:13→21:18)
[2024-09-04] MEDS: TESSALON PERLES 200 MG PO ×3 (09:14→21:18)
[2024-09-04] MEDS: MAGNESIUM OXIDE 1000 MG PO ×2 (09:14→21:15)
[2024-09-04] MEDS: PROTONIX 40 MG PO ×2 (09:14→21:16)
[2024-09-04] MEDS: BUMEX 1 MG PO (09:14)
[2024-09-04] MEDS: DESENEX/MITRAZOL/ZEASORB 1 APPLIC TOPICAL ×2 (09:15→21:19)
[2024-09-04] MEDS: MS CONTIN (EXTENDED RELEASE) 45 MG PO (09:15)
[2024-09-04] MEDS: ZYRTEC 10 MG PO (09:15)
[2024-09-04] MEDS: KEPPRA 750 MG PO ×2 (09:15→21:17)
[2024-09-04] MEDS: KCL 20 MEQ PO ×3 (09:15→21:16)
--- NOTE | 2024-09-04 09:28 | W.PN.ID1 ---
Date of Service
Date of Service: September 04, 2024
Today's Communication
Continue current course of meropenem.
Assessment / Plan
Suspected left lower lobe pneumonia
Leukocytosis; improved
Extensive antibiotic allergy list
Hx Pseudomonas from sputum
Chronic Hypoxic Respiratory Failure s/p Tracheostomy
Cardiac Arrest
Asthma / Bronchiectasis
Chronic HFpEF
Essential Hypertension
Hyperlipidemia
Hypothyroidism
Chronic Pancreatic Insufficiency
Chronic Pain Syndrome
Primary Immunodeficiency Disorder
Possible [place]'s
Morbid obesity (BMI = 55)
Recommendations:
Patient appears clinically improved.
Sensitivity of recovered Pseudomonas reviewed, and isolate is pansensitive.
- De-escalation, though, very difficult given that patient is allergic to PCN's, cephalosporins, doxycycline, fluoroquinolones, sulfa.
Continue with meropenem (d#6) to complete a 7 day course.
Continue with supportive measures.
����������������������������������������������������������
Chief Complaint
-: Pneumonia
Subjective / Review of Systems
Patient seen and examined. Reports feeling well. No respiratory complaints at present.
Vital Signs / Physical Exam
Vital Signs
Vital Signs
Temp Pulse Resp BP Pulse Ox
98.1 F 78 16 115/81 100
09/04/24 03:06 09/04/24 08:05 09/04/24 08:05 09/04/24 09:14 09/04/24 08:00
Physical Exam
Constitutional: Comfortable, Chronically Ill and Obese
Oropharyngeal: Other (Tracheostomy with trach collar in place.)
Pulmonary: Non Labored
Gastrointestinal: Soft and Non Distended
Extremities: Edema; Negative Cyanosis or Erythema
Skin: Warm and Dry; Negative Rash
Neurological: Awake and Alert
Psychological: Calm
Objective Data
Lab Data
Lab Results
09/03/24 05:30
07/22/25 05:30
PT 13.8 Sec (11.4-14.6) 08/30/24 15:39
INR 1.03 08/30/24 15:39
Estimated Creat Clear 75 ml/min 09/03/24 05:30
Lactic Acid 1.0 mmol/L (0.7-2.0) 08/30/24 16:20
Total Bilirubin 0.5 mg/dl (0.2-1.3) 08/30/24 15:39
AST 22 U/L (14-36) 08/30/24 15:39
ALT 20 U/L (0-35) 08/30/24 15:39
Alkaline Phosphatase 111 U/L (38-126) 08/30/24 15:39
Most recent labs reviewed.
Micro Results:
08/31/24 08:49 Blood Culture - Preliminary
Blood/Venous No Growth in 4 days- Final report to follow
08/31/24 09:54 Blood Culture - Preliminary
Blood/Venous No Growth in 72 hours- Final report to follow
08/31/24 16:21 Respiratory Culture - Final
Tracheal Aspirate Pseudomonas aeruginosa
Gram Stain - Final
08/30/24 22:31 MRSA Screen - Final
Nose No Methicillin Resistant Staphylococcus aureus isolated.
Respiratory Culture Final 08/31/24-1005
Many Pseudomonas aeruginosa
Moderate Usual Respiratory Gali
Organism 1 Pseudomonas aeruginosa
1. Pseudomonas aeruginosa
M.I.C. RX
--------- ---
Aztreonam <=4 S
Cefepime 4 S
Ceftazidime 4 S
Ciprofloxacin <=0.25 S
Meropenem <=1 S
Piperacillin/Tazobactam <=8 S
Tobramycin <=2 S
Gram Stain Final
Imaging:
08/30/2024 CXR (portable): hazy retrocardiac opacity noted. Haziness of the left hemidiaphragm seen. Mild cardiomegaly noted. Right lung is clear. Please see full dictation for additional detail. Film personally viewed.
Care Review
Plan reviewed with: Physician (Hospitalist)
--- NOTE | 2024-09-04 09:58 | W.PN.PUL.V3 ---
Today's Communication / Plan
-
Continue nocturnal ventilation
Continue nebulizers
Wean oxygen
Antibiotics per infectious disease
Assessment
-
#1. Left lower lobe pneumonia, ventilator associated.
- Agree with continuing meropenem, ID service on case-correspondence [id number] will be quite difficult as patient is allergic to penicillins, cephalosporins, doxycycline, fluoroquinolones, and sulfa
- Supplemental O2 as needed to keep saturation above 90%- Currently 100% on trach collar
- Tracheal aspirate positive for Pseudomonas
- MRSA screen negative, elevated WBC count improved.
- Will consider repeat chest x-ray in the next several days
#2. Chronic hypoxic respiratory failure, s/p Tracheostomy (2017, h/o cardiac arrest and multiple intubations)
- Patient is on trach collar during daytime and ventilator dependent at night
- Continue supplemental O2 as needed
- Patient has 7.0, cuffless Bivona. Silicone tube without inner cannula, changed every 2 months by her physician.
- Prior history of tracheal innominate artery fistula, s/p repair, patient reportedly not supposed to be on any cuffed tube to decrease local pressure. Minimal leakage noted with her home ventilator through this cuffless tube, continue patient's
home ventilator.
#3. History of asthma.
- Current presentation is not suggestive of acute asthma exacerbation
- Continue home medications including aformoterol, budesonide, DuoNeb
- Patient also on Dupixent as outpatient, can resume post discharge
- Patient chronically on low-dose prednisone, continue current dose-7 mg daily-5 mg in the morning and 2 mg at night
- Follow-up [facility]
#3. History of bronchiectasis
- Continue airway clearance with hypertonic saline nebulized twice a day
- Continue scheduled budesonide aformoterol and DuoNeb
#4. BETH with suspect OHS (BMI 55.1)
- Continue supplemental oxygen
- Ventilator support nightly, status post tracheostomy since 2016
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
Chronic respiratory failure, on home O2 at 6L on 24/7 basis since after tracheostomy in 2017
Asthma, on arformoterol (brovana), dupilimab (dupixent), budesonide: s/p recent flare and 'lung infection'. Follows at [facility] every 3-6 m
Seizure
CABG
Cardiac arrest with multiple intubations, s/p tracheostomy 2017 (PMV during daytime)
BETH
Chronic pain syndrome
Reported primary immunodeficiency disorder
Chronic photophobia
Herb syndrome
Non-smoker
Obesity, BMI 55.1
DVT prophylaxis, subcu heparin 5000 units every 8 hours
Data:
CXR 08/2024: . Findings suggestive of left lower lobe pneumonia or subsegmental atelectasis.
2. Cardiomegaly without evidence of decompensated CHF.
CT Head 08/2024: 1. No CT evidence for acute intracranial hemorrhage or transcortical infarct.
2. Mild bilateral frontal and parietal lobe volume loss.
3. Mild white matter leukoaraiosis in both cerebral hemispheres.
4. Low-lying cerebellar tonsils.
CT Chest 02/2023: 1. No overt large central pulmonary embolism within the limitations as described.
2. Focal nodular subpleural consolidation within the anterior right upper lobe measuring up to 2.2 cm, new from 2014. This is favored to represent atelectasis although not definite. Recommend follow-up noncontrast CT chest in 2-3 months versus
further evaluation with dedicated PET/CT.
3. No other significant abnormality identified in the chest, abdomen or pelvis, as described above.
ECHO 02/2023: Technically difficult study - Definity contrast used.
Left ventricular ejection fraction is >75%, by visual assessment. Normal
regional wall motion within the limitations of the study.
Normal right ventricular size and function.
Mitral valve is grossly normal but poorly visualized.
Aortic valve is grossly normal but poorly visualized.
Tricuspid valve is grossly normal but poorly visualized.
No pericardial effusion. Rv Normal
Subjective Data
-
Date of Service:
Date of Service: September 04, 2024
Chief Complaint: Pulmonary Follow Up and Dyspnea Follow Up
Subjective:
Feels better, tolerated nocturnal ventilation, no complaints of shortness of breath, productive cough, chest pain
Review of Systems
General: Other ( Per HPI)
Objective Data
Data Reviewed
Vital Signs / I&O:
Vital Signs
Temp Pulse Resp BP Pulse Ox
98.1 F 78 16 115/81 100
09/04/24 03:06 09/04/24 08:05 09/04/24 08:05 09/04/24 09:14 09/04/24 08:00
Intake and Output
09/03/24 09/04/24 09/05/24
06:59 06:59 06:59
Intake Total 960 / 960
Balance 960 / 960
SaO2: 100
Nasal Cannula flow liters per minute: 6
Physical Exam
General: Respiratory Distress (n) and Comfortable
HEENT: Normocephalic and Anicteric
Cardiovascular: Regular Rhythm
Respiratory: Wheeze (n), Crackles (n), Rhonchi, Non-Labored Respirations and Other (Tracheotomy)
GI: Soft and Non Distended (Morbidly obese)
Neurology: Awake, Alert and No Motor Deficits (Moves all extremities)
Skin: Warm, Good Color, Cyanosis (n), Jaundice (n) and Rash (n)
Labs/Micro/Reports
Lab Data
09/03/24 05:30
09/03/24 05:30
Microbiology
08/31/24 08:49 Blood/Venous Blood Culture - Preliminary
No Growth in 4 days- Final report to follow
08/31/24 09:54 Blood/Venous Blood Culture - Preliminary
No Growth in 72 hours- Final report to follow
08/31/24 16:21 Tracheal Aspirate Respiratory Culture - Final
Pseudomonas aeruginosa
08/31/24 16:21 Tracheal Aspirate Gram Stain - Final
08/30/24 22:31 Nose MRSA Screen - Final
No Methicillin Resistant Staphylococcus aureus isolated.
--- NOTE | 2024-09-04 14:45 | W.PN.HOSP.TC ---
Today's Communication/Plan
-
discharge tomorrow 09/05
Assessment / Plan
Assessment / Plan
Impression:
Patient is a 53 y/o female with a very complicated medical history including cardiac arrest requiring multiple intubations and evaluate tracheostomy placed, asthma, bronchiectasis, heart failure, chronic kidney disease and chronic pain syndrome who
presents following a syncopal episode. Patient reports she was having a telemedicine visit with her PCP in followup for a recent episode of shingles. During the visit she developed lightheadedness and passed out. EMS was called who found her blood
pressure to be on the low side.
Chest x-ray consistent with pneumonia, patient started on IV antibiotic, pulmonary and ID consulted.
Respiratory culture came back positive for Pseudomonas.
Assessment/plan:
Ventilator-Associated Pneumonia
-Patient is high risk as she is immunocompromised on chronic steroids and has history of bronchiectasis with reports of prior pseudomonas in the past
-Reviewed with infectious disease who recommends meropenem in setting of multiple allergies / adverse reactions--> appreciated formal ID consult.
-Added Mucinex
-Consult Pulmonary for ventilator management
- Respiratory culture came back positive for pansensitive Pseudomonas.
Continue meropenem 07/20
Bilateral lower extremity pain and erythema
No clear signs of infection although she is covered with current antibiotics
Probably peripheral neuropathy related
Doppler of both lower extremities negative for DVT
Chronic Hypoxic Respiratory Failure s/p Tracheostomy on Nightly Vent
Asthma / Bronchiectasis
-Continue supplemental oxygen via trach collar
-Continue prednisone as prior to admission
-Continue arformoterol, budesonide, DuoNeb and NaCl nebs
-Patient maintained on Dupixent as outpatient
- Appreciated pulmonary consult
Syncope, suspect related to hypotension
-Monitor on Telemetry
-Check orthostatic vital signs
Chronic HFpEF / Chronic Lower Ext Lymphedema
-Continue bumetanide and spironolactone
- Monitor renal function and electrolytes
CKD Stage III
-Creatinine seems to be at baseline
Pancreatic Insufficiency
-Continue Creon
Seizure Disorder
-Continue levetiracetam
Hypothyroidism
-Continue levothyroxine
Chronic Pain with Opioid Dependence
-Continue morphine and oxycodone as prior to admission
-Continue duloxetine and topiramate
GERD
-Continue Protonix and Pepcid
Class III Obesity
-Affects all aspects of care
CODE STATUS: Full code
DVT prophylaxis: Lovenox
Diet: Regular diet.
Total time spent on today's encounter was 65 minutes which included time spent in counseling the patient/family regarding diagnosis and treatment plan as listed above, goals of care, and symptom management. Case was discussed with nursing staff,
specialists, and care coordinators/case management. All labs and imaging personally reviewed by me. Remainder the time spent in detailed review of previous records, lab data, imaging, and other medical provider documentation.
Anticipated Discharge: Within 24 hours
Subjective/Interval History
-
Date of Service: September 04, 2024
Patient seen and examined at bedside, denies any chest pain , shortness of breath Improved, no abdominal pain, no nausea, no vomiting, no diarrhea or constipation.
Discharge tomorrow
Objective Data
-
Vital Signs:
Vital Signs
Temp Pulse Resp BP Pulse Ox
98.1 F 84 16 127/77 95
09/04/24 03:06 09/04/24 13:54 09/04/24 13:54 09/04/24 10:00 09/04/24 13:54
I&O
09/03/24 09/04/24 09/05/24
06:59 06:59 06:59
Intake Total 960 / 960 480 / 480
Balance 960 / 960 480 / 480
Physical Exam
-
General: Well Developed, Comfortable and Morbidly Obese
HEENT: Normocephalic, Atraumatic, Moist Mucous Membranes, No Ptosis, PERRLA, Nose Appears Normal and Other (Trach)
Respiratory: Rales, Rhonchi and Non Labored Respirations
Cardiac: Regular Rhythm and S1/S2
Breast: Deferred by me
GI: Soft, Nontender, Nondistended and Normal Bowel Sounds
Genito-urinary: No Costovertebral Tender
Musculoskeletal: No Clubbing, No Cyanosis, Edema, Right Lower Extrem and Edema, Left Lower Extrem
Skin: Warm
Neuro: Awake, Alert, Oriented, AO x 3 and No Motor Deficits
Psych: Calm
Data Reviewed
-
Diagnostic Radiology: Image personally visualized and interpreted and Report Reviewed by me
CT Scan: Image personally visualized and interpreted and Report Reviewed by me
Ultrasound: Image personally visualized and interpreted and Report Reviewed by me
MRI: Image personally visualized and interpreted and Report Reviewed by me
Medical Tests (Nuc Med, Echo etc): Image personally visualized and interpreted and Report Reviewed by me
Labs: Labs Reviewed by me
Old Records: Reviewed
[2024-09-04] MEDS: DELTASONE 7 MG PO (17:01)
[2024-09-04] MEDS: FIORICET 1 TAB PO (17:04)
--- NOTE | 2024-09-04 17:20 | PTCARENOTE ---
Patient c/o of headache to the back of her head. She stated that she thought a nap would help but it has not. Pt medicated with PRN Fioricet, see MAR. Assessment, care and VS as charted.
[2024-09-04] MEDS: TOPAMAX 150 MG PO (21:14)
[2024-09-04] MEDS: MS CONTIN (EXTENDED RELEASE) 60 MG PO (21:16)
[2024-09-04] MEDS: SENOKOT 8.6 MG PO (21:16)
[2024-09-04] MEDS: PRAVACHOL 40 MG PO (21:17)
[2024-09-04] MEDS: PEPCID 40 MG PO (21:17)
[2024-09-05] VITALS (10 sets, daily range): BP systolic 103–130; BP diastolic 62–90; BMI 55.7
[2024-09-05] MEDS: ROXICODONE 10 MG PO ×4 (01:02→16:06)
[2024-09-05] MEDS: HEPARIN 5000 UNITS SC ×3 (01:03→16:06)
[2024-09-05] MEDS: NITROSTAT (SUBLINGUAL) 0.4 MG SL (01:12)
[2024-09-05] MEDS: LEVSIN 0.125 MG PO (01:14)
--- NOTE | 2024-09-05 01:23 | PTCARENOTE ---
Patient states she feels like she is having esophageal spasms. Sp02 95-99% on her Trilogy home vent. Pt states she takes Nitro SL 0.4mg with Levsin SL 0.125mg to help with this at home. DILIP Pompa aware and able to add one time dose order for Nitro
0.4mg SL. Levsin and nitro given per the MAR. Pt thankful for care. Med list updated. Pt reassessed 10 min later. Appears to be asleep; respirations even and unlabored. Sp02 95%.
[2024-09-05] MEDS: MERREM 500 MG IV ×3 (05:11→16:05)
[2024-09-05] MEDS: STERILE WATER FOR INJECTION 10 ML IV ×3 (05:11→16:05)
[2024-09-05] MEDS: SYNTHROID 125 MCG PO (05:11)
[2024-09-05] MEDS: DUONEB 3 ML INH ×2 (07:25→15:09)
[2024-09-05] MEDS: PULMICORT 0.5 MG INH (07:25)
[2024-09-05] MEDS: NON-FORMULARY ITEM 4 ML INH (07:26)
[2024-09-05] MEDS: ZYRTEC 10 MG PO (08:24)
[2024-09-05] MEDS: PROTONIX 40 MG PO (08:24)
[2024-09-05] MEDS: KCL 20 MEQ PO ×2 (08:24→16:06)
[2024-09-05] MEDS: CYMBALTA DELAYED RELEASE 30 MG PO (08:24)
[2024-09-05] MEDS: ALDACTONE 100 MG PO (08:24)
[2024-09-05] MEDS: MAGNESIUM OXIDE 1000 MG PO (08:24)
[2024-09-05] MEDS: KEPPRA 750 MG PO (08:24)
[2024-09-05] MEDS: BUMEX 1 MG PO (08:24)
[2024-09-05] MEDS: MS CONTIN (EXTENDED RELEASE) 45 MG PO (08:24)
[2024-09-05] MEDS: TESSALON PERLES 200 MG PO ×2 (08:24→16:06)
[2024-09-05] MEDS: DESENEX/MITRAZOL/ZEASORB 1 APPLIC TOPICAL (08:26)
[2024-09-05] MEDS: FLUSH (NSS) 2 FLUSH IV (09:44)
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
--- NOTE | 2024-09-05 09:54 | W.PN.HOSP.TC ---
Today's Communication/Plan
-
discharge home today 09/05 after 4pm dose of Meropenem.
Assessment / Plan
Assessment / Plan
Impression:
Patient is a 53 y/o female with a very complicated medical history including cardiac arrest requiring multiple intubations and evaluate tracheostomy placed, asthma, bronchiectasis, heart failure, chronic kidney disease and chronic pain syndrome who
presents following a syncopal episode. Patient reports she was having a telemedicine visit with her PCP in followup for a recent episode of shingles. During the visit she developed lightheadedness and passed out. EMS was called who found her blood
pressure to be on the low side.
Chest x-ray consistent with pneumonia, patient started on IV antibiotic, pulmonary and ID consulted.
Respiratory culture came back positive for Pseudomonas.
completed 7 days of IV Meropenem.
Assessment/plan:
Ventilator-Associated Pneumonia
-Patient is high risk as she is immunocompromised on chronic steroids and has history of bronchiectasis with reports of prior pseudomonas in the past
-Reviewed with infectious disease who recommends meropenem in setting of multiple allergies / adverse reactions--> appreciated formal ID consult.
-Added Mucinex
-Consult Pulmonary for ventilator management
- Respiratory culture came back positive for pansensitive Pseudomonas.
completed 7 days of IV Meropenem.
Bilateral lower extremity pain and erythema
No clear signs of infection although she is covered with current antibiotics
Probably peripheral neuropathy related
Doppler of both lower extremities negative for DVT
Chronic Hypoxic Respiratory Failure s/p Tracheostomy on Nightly Vent
Asthma / Bronchiectasis
-Continue supplemental oxygen via trach collar
-Continue prednisone as prior to admission
-Continue arformoterol, budesonide, DuoNeb and NaCl nebs
-Patient maintained on Dupixent as outpatient
- Appreciated pulmonary consult
Syncope, suspect related to hypotension
-Monitor on Telemetry
-Check orthostatic vital signs
Chronic HFpEF / Chronic Lower Ext Lymphedema
-Continue bumetanide and spironolactone
- Monitor renal function and electrolytes
CKD Stage III
-Creatinine seems to be at baseline
Pancreatic Insufficiency
-Continue Creon
Seizure Disorder
-Continue levetiracetam
Hypothyroidism
-Continue levothyroxine
Chronic Pain with Opioid Dependence
-Continue morphine and oxycodone as prior to admission
-Continue duloxetine and topiramate
GERD
-Continue Protonix and Pepcid
Class III Obesity
-Affects all aspects of care
CODE STATUS: Full code
DVT prophylaxis: Lovenox
Diet: Regular diet.
Total time spent on today's encounter was 65 minutes which included time spent in counseling the patient/family regarding diagnosis and treatment plan as listed above, goals of care, and symptom management. Case was discussed with nursing staff,
specialists, and care coordinators/case management. All labs and imaging personally reviewed by me. Remainder the time spent in detailed review of previous records, lab data, imaging, and other medical provider documentation.
Anticipated Discharge: Today
Subjective/Interval History
-
Date of Service: September 05, 2024
Patient seen and examined at bedside, denies any chest pain , shortness of breath Improved, no abdominal pain, no nausea, no vomiting, no diarrhea or constipation.
Discharge today.
Objective Data
-
Vital Signs:
Vital Signs
Temp Pulse Resp BP Pulse Ox
98.3 F 73 19 130/81 99
09/05/24 03:19 09/05/24 08:00 09/05/24 08:00 09/05/24 08:24 09/05/24 09:50
I&O
09/04/24 09/05/24 09/06/24
06:59 06:59 06:59
Intake Total 960 / 960 720 / 720
Output Total 300 / 300
Balance 960 / 960 420 / 420
Physical Exam
-
General: Well Developed, Comfortable and Morbidly Obese
HEENT: Normocephalic, Atraumatic, Moist Mucous Membranes, No Ptosis, PERRLA, Nose Appears Normal and Other (Trach)
Respiratory: Rales, Rhonchi and Non Labored Respirations
Cardiac: Regular Rhythm and S1/S2
Breast: Deferred by me
GI: Soft, Nontender, Nondistended and Normal Bowel Sounds
Genito-urinary: No Costovertebral Tender
Musculoskeletal: No Clubbing, No Cyanosis, Edema, Right Lower Extrem and Edema, Left Lower Extrem
Skin: Warm
Neuro: Awake, Alert, Oriented, AO x 3 and No Motor Deficits
Psych: Calm
Data Reviewed
-
Diagnostic Radiology: Image personally visualized and interpreted and Report Reviewed by me
CT Scan: Image personally visualized and interpreted and Report Reviewed by me
Ultrasound: Image personally visualized and interpreted and Report Reviewed by me
MRI: Image personally visualized and interpreted and Report Reviewed by me
Medical Tests (Nuc Med, Echo etc): Image personally visualized and interpreted and Report Reviewed by me
Labs: Labs Reviewed by me
Old Records: Reviewed
--- NOTE | 2024-09-05 09:57 | W.DCSUMMARY ---
Discharge Summary
Discharge Data
Date of Admission: 08/30/24
Date of Discharge: 09/05/24
-
Pending Results: No
Hospital Course
Hospital course
Patient is a 53 y/o female with a very complicated medical history including cardiac arrest requiring multiple intubations and evaluate tracheostomy placed, asthma, bronchiectasis, heart failure, chronic kidney disease and chronic pain syndrome who
presents following a syncopal episode. Patient reports she was having a telemedicine visit with her PCP in followup for a recent episode of shingles. During the visit she developed lightheadedness and passed out. EMS was called who found her blood
pressure to be on the low side.
Chest x-ray consistent with pneumonia, patient started on IV antibiotic, pulmonary and ID consulted.
Respiratory culture came back positive for Pseudomonas.
completed 7 days of IV Meropenem
During hospitalization patient was treated from the following
Ventilator-Associated Pneumonia
-Patient is high risk as she is immunocompromised on chronic steroids and has history of bronchiectasis with reports of prior pseudomonas in the past
-Reviewed with infectious disease who recommends meropenem in setting of multiple allergies / adverse reactions--> appreciated formal ID consult.
-Added Mucinex
-Consult Pulmonary for ventilator management
- Respiratory culture came back positive for pansensitive Pseudomonas.
completed 7 days of IV Meropenem.
Bilateral lower extremity pain and erythema
No clear signs of infection although she is covered with current antibiotics
Probably peripheral neuropathy related
Doppler of both lower extremities negative for DVT
Chronic Hypoxic Respiratory Failure s/p Tracheostomy on Nightly Vent
Asthma / Bronchiectasis
-Continue supplemental oxygen via trach collar
-Continue prednisone as prior to admission
-Continue arformoterol, budesonide, DuoNeb and NaCl nebs
-Patient maintained on Dupixent as outpatient
- Appreciated pulmonary consult
Syncope, suspect related to hypotension
-Monitor on Telemetry
-Check orthostatic vital signs
Chronic HFpEF / Chronic Lower Ext Lymphedema
-Continue bumetanide and spironolactone
- Monitor renal function and electrolytes
CKD Stage III
-Creatinine seems to be at baseline
Pancreatic Insufficiency
-Continue Creon
Seizure Disorder
-Continue levetiracetam
Hypothyroidism
-Continue levothyroxine
Chronic Pain with Opioid Dependence
-Continue morphine and oxycodone as prior to admission
-Continue duloxetine and topiramate
GERD
-Continue Protonix and Pepcid
Class III Obesity
-Affects all aspects of care
CODE STATUS: Full code
DVT prophylaxis: Lovenox
Diet: Regular diet.
Total time spent on today's encounter was 40 minutes which included time spent in counseling the patient/family regarding diagnosis and treatment plan as listed above, goals of care, and symptom management. Case was discussed with nursing staff,
specialists, and care coordinators/case management. All labs and imaging personally reviewed by me. Remainder the time spent in detailed review of previous records, lab data, imaging, and other medical provider documentation.
Anticipated Discharge: Today
Discharge Plan
-
Patient Disposition: Home (Routine Discharge)
Discharge Diagnosis/Procedures: Ventilator-Associated Pseudomonas pneumonia.
Chronic Hypoxic Respiratory Failure s/p Tracheostomy on Nightly Vent
Diet: As tolerated and Regular
Activity: With assistance and As tolerated
Referrals:
Pulmonology at [facility] [Other, Pulmonary Medicine] - in two to three weeks
Uma Gabriel MD [Family Provider, Family Practice]
Prescriptions:
Continued
pravastatin 40 MG tablet
40 mg PO HS
morphine 15 MG tablet extended release
45 mg PO DAILY
zinc 15 MG tablet
15 mg PO DAILY
famotidine 40 MG tablet
40 mg PO HS
pantoprazole 40 MG tablet,delayed release (DR/EC)
40 mg PO BID
levothyroxine 125 MCG tablet
125 mcg PO DAILY
cyanocobalamin (vitamin B-12) 1,000 MCG tablet
500 mcg PO DAILY
levetiracetam 250 MG tablet
750 mg PO BID
spironolactone 50 MG tablet
100 mg PO BID
budesonide 1 MG/2 ML suspension for nebulization
1 mg IH R TID
oxycodone-acetaminophen 10-325 mg tablet
1 tab PO Q4H@09,13,17,21,0100
Patient Comments:
02/17/2023, patient filled this medication on 01/27/2023 for 150 tablets according to PDMP.
hyoscyamine sulfate 0.125 mg Tablet, Sublingual
0.125 mg PO Q4HPRN PRN (Reason: esophageal spamsms)
coQ10 (ubiquinol) 200 mg Capsule
200 mg PO TID
Dupixent Pen 300 mg/2 mL pen injector
300 mg SC Q2W
aluminum hydrox-magnesium carb 95-358 mg/15 mL Suspension
5 ml PO Q4HPRN PRN (Reason: gerd) Qty: 0
sennosides [senna] 8.6 mg Tablet
8.6 mg PO HS
prednisone 10 mg Tablet
7 mg PO QPM
benzonatate 200 mg Capsule
200 mg PO TID
morphine 30 mg Tablet Extended Release
60 mg PO HS
Patient Comments:
02/17/2023, patient filled this medication on 02/09/2023 for 90 tablets according to PDMP.
potassium chloride [Klor-Con M20] 20 mEq Tablet,Er Particles/Crystals
20 meq PO TID
niacinamide 500 mg Tablet
500 mg PO QPM Qty: 0
nystatin 100,000 unit/gram Cream
1 applic TOPICAL BID
magnesium oxide 500 mg Tablet
1,000 mg PO BID
bumetanide 1 mg Tablet
1 mg PO DAILY
nystatin 100,000 unit/gram Powder
1 applic TOPICAL BID
riboflavin (vitamin B2) [Vitamin B-2] 50 mg Tablet
50 mg PO Q48H
topiramate 50 mg Tablet
150 mg PO HS
arformoterol [Brovana] 15 mcg/2 mL Solution For Nebulization
2 ml INHALATION R BID
calcium carbonate-vitamin D3 [Calcium 500 + D] 500 mg-10 mcg (400 unit) Tablet
1 tab PO DAILY Qty: 0
Visbiome 112.5 billion cell Capsule
1 cap PO DAILY
sodium chloride 7 % Solution For Nebulization
4 ml INHALATION R BID
Gentle Iron 28 mg iron-60mg -400 mcg-8 mcg Capsule
1 cap PO DAILY@0500 Qty: 0
Carnitine powder
3,000 mg PO DAILY
ipratropium-albuterol 0.5 mg-3 mg(2.5 mg base)/3 mL Solution For Nebulization
3 ml INHALATION R BID
duloxetine 30 mg Capsule,Delayed Release(Dr/Ec)
30 mg PO BID
cetirizine [Zyrtec] 10 mg Tablet
10 mg PO DAILY
lidocaine 5 % Adhesive Patch,Medicated
3 patch TOPICAL DAILYPRN PRN (Reason: mild pain)
folic acid 1 mg Tablet
2 mg PO HS
Creon 36,000-114,000- 180,000 unit Capsule,Delayed Release(Dr/Ec)
2 cap PO BID@1200,1800
Creon 36,000-114,000- 180,000 unit Capsule,Delayed Release(Dr/Ec)
1 cap PO DAILYPRN PRN (Reason: snacks)
No Action
nitroglycerin 0.4 mg Tablet, Sublingual
0.4 mg SUBLINGUAL Q5-15M PRN (Reason: esophgeal spasms)
Discharge Orders:
Discharge Patient (As Directed); Ordered 09/05/24
Ordered By: Catie Anton
Discharge Date and Time
Print Language: ARABIC
--- NOTE | 2024-09-05 10:26 | CM ---
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
Plan: Discharge to home today
--- NOTE | 2024-09-05 10:54 | W.PN.ID1 ---
Date of Service
Date of Service: September 05, 2024
Today's Communication
Complete course of antibiotics today.
Assessment / Plan
Suspected left lower lobe pneumonia
Leukocytosis; improved
Extensive antibiotic allergy list
Hx Pseudomonas from sputum
Chronic Hypoxic Respiratory Failure s/p Tracheostomy
Cardiac Arrest
Asthma / Bronchiectasis
Chronic HFpEF
Essential Hypertension
Hyperlipidemia
Hypothyroidism
Chronic Pancreatic Insufficiency
Chronic Pain Syndrome
Primary Immunodeficiency Disorder
Possible [place]'s
Morbid obesity (BMI = 55)
Recommendations:
Patient appears clinically improved.
Patient completing her 7-day course of meropenem today. Thereafter, observe off antibiotics.
Continue with supportive measures.
����������������������������������������������������������
Chief Complaint
-: Pneumonia
Subjective / Review of Systems
Patient seen and examined. Reports breathing is comfortable. No specific complaints.
Review of Systems: No Fever and No Chills
Vital Signs / Physical Exam
Vital Signs
Vital Signs
Temp Pulse Resp BP Pulse Ox
98.3 F 73 16 130/81 98
09/05/24 03:19 09/05/24 08:20 09/05/24 08:20 09/05/24 08:24 09/05/24 10:12
Physical Exam
Constitutional: Comfortable, Chronically Ill and Obese
Oropharyngeal: Other (Tracheostomy with trach collar in place.)
Pulmonary: Non Labored
Gastrointestinal: Soft and Non Distended
Extremities: Edema; Negative Cyanosis or Erythema
Skin: Warm and Dry; Negative Rash
Neurological: Awake and Alert
Psychological: Calm
Objective Data
Lab Data
Lab Results
09/03/24 05:30
09/03/24 05:30
PT 13.8 Sec (11.4-14.6) 08/30/24 15:39
INR 1.03 08/30/24 15:39
Estimated Creat Clear 75 ml/min 09/03/24 05:30
Lactic Acid 1.0 mmol/L (0.7-2.0) 08/30/24 16:20
Total Bilirubin 0.5 mg/dl (0.2-1.3) 08/30/24 15:39
AST 22 U/L (14-36) 08/30/24 15:39
ALT 20 U/L (0-35) 08/30/24 15:39
Alkaline Phosphatase 111 U/L (38-126) 08/30/24 15:39
Most recent labs reviewed.
Micro Results:
08/31/24 09:54 Blood Culture - Final
Blood/Venous No Growth - Final Report
08/31/24 08:49 Blood Culture - Final
Blood/Venous No Growth - Final Report
08/31/24 16:21 Respiratory Culture - Final
Tracheal Aspirate Pseudomonas aeruginosa
Gram Stain - Final
08/30/24 22:31 MRSA Screen - Final
Nose No Methicillin Resistant Staphylococcus aureus isolated.
Respiratory Culture Final 08/31/24-1005
Many Pseudomonas aeruginosa
Moderate Usual Respiratory Gali
Organism 1 Pseudomonas aeruginosa
1. Pseudomonas aeruginosa
M.I.C. RX
--------- ---
Aztreonam <=4 S
Cefepime 4 S
Ceftazidime 4 S
Ciprofloxacin <=0.25 S
Meropenem <=1 S
Piperacillin/Tazobactam <=8 S
Tobramycin <=2 S
Gram Stain Final
Imaging:
08/30/2024 CXR (portable): hazy retrocardiac opacity noted. Haziness of the left hemidiaphragm seen. Mild cardiomegaly noted. Right lung is clear. Please see full dictation for additional detail. Film personally viewed.
Care Review
Plan reviewed with: Physician (Hospitalist)
--- NOTE | 2024-09-05 13:43 | PTCARENOTE ---
Assumed care of patient at beginning of this shift from previous RN with trach collar in use; resp therapist confirmed settings with patient as she does self care: 35% T collar with 8L. POx 98-99%. NSR on monitor. Patient for discharge today after
16:00 dose of IVAB. Per CM patient has no needs as she will set up VN and will transport in their w/c van. See worklist for full assessment and vital signs.
--- NOTE | 2024-09-05 13:50 | PTCARENOTE ---
Order entered by Dr Anton to de-access port prior to discharge. VAT RN notified via TT to de-access port after 16:00 dose of IVAB; replied they will notify next VAT RN.
--- NOTE | 2024-09-05 17:02 | VATNOTE ---
deaccessed left port per protocol; brisk blood return noted prior to
--- NOTE | 2024-09-05 17:59 | PTCARENOTE ---
Patient discharged to home. VAT RN de-accessed port.
== END 2024-09-05 18:19 | disposition home health service (06) | DRG 208 ==
LOC: IMU 20:24
PROVIDERS: Emergency Medicine; Hospitalist; Physician Assistant Medical; ADMITTING PHYSICIAN Internal Medicine; ATTENDING PHYSICIAN General Practice; CONSULT PHYSICIAN Internal Medicine; CONSULT PHYSICIAN Internal Medicine Infectious Disease; EMERGENCY PHYSICIAN Emergency Medicine; FAMILY PHYSICIAN Family Medicine
PROC: 5A1935Z Respiratory Ventilation, Less than 24 Consecutive Hours (ICD-10-PCS; 2024-08-30)
DX: J15.1 Pneumonia due to Pseudomonas (principal); D84.89 Other immunodeficiencies; J95.851 Ventilator associated pneumonia; E88.40 Mitochondrial metabolism disorder, unspecified; Z68.43 Body mass index [BMI] 50.0-59.9, adult; I50.32 Chronic diastolic (congestive) heart failure; I13.0 Hypertensive heart and chronic kidney disease with heart failure and stage 1 through stage 4 chronic kidney disease, or unspecified chronic kidney disease; J96.11 Chronic respiratory failure with hypoxia; Z99.11 Dependence on respirator [ventilator] status; F11.20 Opioid dependence, uncomplicated; E24.9 Cushing's syndrome, unspecified; E66.2 Morbid (severe) obesity with alveolar hypoventilation; R55 Syncope and collapse; E66.813 Obesity, class 3; G89.4 Chronic pain syndrome; J45.909 Unspecified asthma, uncomplicated; F44.9 Dissociative and conversion disorder, unspecified; G40.909 Epilepsy, unspecified, not intractable, without status epilepticus; G43.909 Migraine, unspecified, not intractable, without status migrainosus; Y84.8 Other medical procedures as the cause of abnormal reaction of the patient, or of later complication, without mention of misadventure at the time of the procedure; K21.9 Gastro-esophageal reflux disease without esophagitis; K22.4 Dyskinesia of esophagus; N18.30 Chronic kidney disease, stage 3 unspecified; E03.9 Hypothyroidism, unspecified; I89.0 Lymphedema, not elsewhere classified; K86.89 Other specified diseases of pancreas; F32.A Depression, unspecified; Z87.891 Personal history of nicotine dependence; Z93.0 Tracheostomy status; Z95.1 Presence of aortocoronary bypass graft; Z86.74 Personal history of sudden cardiac arrest; Z86.73 Personal history of transient ischemic attack (TIA), and cerebral infarction without residual deficits; Z79.51 Long term (current) use of inhaled steroids; Z79.52 Long term (current) use of systemic steroids; Z79.890 Hormone replacement therapy; Z88.1 Allergy status to other antibiotic agents; Z88.5 Allergy status to narcotic agent; Z88.0 Allergy status to penicillin; Z88.2 Allergy status to sulfonamides; Z88.8 Allergy status to other drugs, medicaments and biological substances; Z91.018 Allergy to other foods
CPT/HCPCS: 70450; 71045; 80048; 80053; 80177; 83605; 84484; 85025; 85027; 85610; 87040; 87070; 87077; 87186; 87205; 92610; 93005; 93970; 94640; 96360; 99285

== ENCOUNTER 2024-12-29 15:02 | Emergency (ER) | payer BC, OTHER, SELFPAY ==
[2024-12-29 15:08] VITALS: BP 94/66
[2024-12-29 15:19] VITALS: BP 86/73
[2024-12-29 15:23] LABS: Hematocrit 37.8 % (37.0-47.0); Hemoglobin 11.9 g/dL (12.0-16.0); Mean Corp Hgb Conc. 31.5 g/dL (33.0-37.0); Mean Corpuscular Volume 90.0 fL (81.0-99.0); Nucleated Red Blood Cells % 0 %; Platelet Count 261 10^3/uL (130-400); Red Cell Dist. Width 13.4 % (11.5-14.5)
[2024-12-29 15:29] LABS: INR 1.06; PT 14.2 Sec (11.4-14.6)
[2024-12-29 15:33] LABS: ALT (SGPT) 16 U/L (0-35); AST (SGOT) 19 U/L (14-36); Albumin 4.0 g/dl (3.5-5.0); Alkaline Phosphatase 161 U/L (38-126); Blood Urea Nitrogen 22 mg/dl (7-17); Calcium 9.3 mg/dl (8.4-10.2); Carbon Dioxide 21 mmol/L (22-30); Chloride 106 mmol/L (98-107); Glucose 91 mg/dl (70-99); Potassium 4.7 mmol/L (3.5-5.1); Sodium 134 mmol/L (135-145); Total Protein 7.7 g/dl (6.3-8.2); eGFR 48.26
[2024-12-29 15:44] LABS: Troponin I 0.015 ng/ml
[2024-12-29 16:15] VITALS: BP 129/78
[2024-12-29 16:36] VITALS: BP 117/84
--- NOTE | 2024-12-29 18:57 | ED.GENMED ---
History of Present Illness
General
Chief Complaint: Chest Pain
Source: patient
Exam Limitations: none
Time Seen by Provider: 12/29/24 18:08
Nursing documentation reviewed up to this point in time: agreed with
History of Present Illness
History of Present Illness:
Note:
CHIEF COMPLAINT(S)
Nausea, vomiting, and abdominal pain.
HISTORY OF PRESENT ILLNESS
The patient is a 54-year-old female with a history of esophageal spasms and pancreatic insufficiency disease who presented with nausea, vomiting, and abdominal pain. The symptoms began in the morning after waking up and persisted throughout the day.
The patient described feeling nauseous and experiencing an upset stomach accompanied by loose stools. She attempted to alleviate the symptoms by taking medications, including nitroglycerin and hyoscyamine , without significant relief.
The patient reported attempts to distract herself by taking a shower, which worsened her nausea, leading to vomiting. She indicated that such symptoms have previously been associated with her known hiatal hernia but occasionally have indicated
cardiac issues. Despite these episodes, the patient stated, 'Elena never felt like that and then had this on top of it.'
The patient has recently experienced fluctuations in blood pressure and heart rates and is currently monitored with a loop recorder due to suspected cardiac issues. A recent diagnostic workup including blood work and an EKG showed normal results.
The patient reported a significant weight loss of 60 pounds and mentioned the need to lose more weight for potential hernia repair.
The patient described episodes of syncope characterized by pallor, coldness, visual disturbances, and inability to articulate, which she attributes to a reset or 'reboot' of her system. These episodes have been chronic but are worsening, prompting
extensive cardiac monitoring. The patient denies intestinal bowel obstruction but notes significant gastrointestinal symptoms during these episodes.
CHRONIC MEDICAL CONDITIONS SIGNIFICANTLY AFFECTING CARE
- Esophageal spasms.
- Pancreatic insufficiency.
- Hiatal hernia.
- Asthma.
PHYSICAL EXAM
General: Alert, no acute distress.
Skin: Warm, dry.
Head: Normocephalic, atraumatic.
Neck: Supple, trachea midline.
Eye Ears, nose, mouth, and throat: Oral mucosa moist.
Cardiovascular: Normal peripheral perfusion, No edema.
Respiratory: Respirations are non-labored.
Gastrointestinal: Abdomen nondistended. non tender
Back: Normal range of motion, Normal alignment.
Musculoskeletal: Normal range of motion, normal strength.
Neurological: Alert and oriented to person, place, time, and situation, No focal neurological deficit observed.
Psychiatric: Cooperative, appropriate mood & affect.
PLAN
1. Administer intravenous fluids to address potential dehydration.
2. Continue monitoring with the loop recorder for potential cardiac arrhythmias.
3. Hospital admission for further evaluation and management.
4. Consultation with gastroenterology regarding ongoing gastrointestinal symptoms and potential surgical intervention for hiatal hernia.
DIFFERENTIAL DIAGNOSIS
The Differential Diagnosis includes, in no particular order and is not limited to:
1. Hiatal hernia.
2. Esophageal spasms.
3. Pancreatic insufficiency complications.
4. Gastroesophageal reflux disease.
5. Gastritis.
6. Peptic ulcer disease.
7. Biliary colic.
8. Acute coronary syndrome.
9. Arrhythmias.
10. Anxiety-related gastrointestinal symptoms.
EKG
My independent EKG interpretation is:
- Time of EKG: Not provided
- Rhythm: Sinus tachycardia
- Heart rate: 105 bpm
- SD interval: Not provided
- QRS duration: Not provided
- QT interval: Normal
- [place]: Not provided
- Abnormalities: Mild left ventricular hypertrophy, no ST segment elevation, no evidence of ischemia
Disposition:
SUMMARY OF ENCOUNTER
The patient, a 54-year-old female with a history of esophageal spasms, pancreatic insufficiency, hiatal hernia, and asthma, presented with nausea, vomiting, and abdominal pain, which began in the morning and persisted throughout the day. She
attempted to alleviate her symptoms with nitroglycerin and hyoscyamine but with minimal relief. Vomiting was exacerbated by showering. The patient has also recently experienced fluctuations in blood pressure and heart rates, prompting cardiac
monitoring with a loop recorder. Her EKG indicated sinus tachycardia but showed no evidence of ischemia. Upon examination, the patients abdomen was benign, and no intestinal obstruction was suspected. Her symptoms showed some improvement after
administering ondansetron (Zofran) and IV fluids. CT of the abdomen and pelvis was deemed unnecessary. The patient was considered stable for discharge with instructions for primary care follow-up and return precautions.
DISPOSITION
Discharge.
ASSESSMENT
The patients symptoms of nausea, vomiting, and abdominal pain are possibly related to her known hiatal hernia or gastrointestinal issues exacerbated by stress or cardiac concerns. Improvement with antiemetic and fluid therapy suggests a
gastrointestinal cause, possibly related to her existing medical conditions.
EMERGENCY TREATMENTS ADMINISTERED
Ondansetron (Zofran) and intravenous fluids.
PLAN
1. Discharge the patient with instructions to follow up with primary care.
2. Provide return precautions in case symptoms worsen or new symptoms arise.
INDEPENDENT REVIEW OF LABS AND INTERPRETATION OF TESTS
My independent EKG interpretation is:
- Rhythm: Sinus tachycardia
- Heart rate: 105 bpm
- Abnormalities: Mild left ventricular hypertrophy, no ST segment elevation, no evidence of ischemia
PATIENT EDUCATION AND COUNSELING
The patient was advised about the potential causes of her symptoms, including her history of esophageal spasms, pancreatic insufficiency, and hiatal hernia. She was instructed to seek immediate medical attention if symptoms worsen or if new symptoms
develop.
FOLLOW-UP INSTRUCTIONS
The patient should follow up with her primary care physician and is advised to return if her symptoms worsen.
MEDICAL DECISION MAKING
- Complexity of Data Reviewed: Chronic conditions affecting care include esophageal spasms, pancreatic insufficiency, and hiatal hernia. Differential diagnosis includes hiatal hernia, esophageal spasms, pancreatic insufficiency complications, GERD,
gastritis, peptic ulcer disease, biliary colic, acute coronary syndrome, arrhythmias, and anxiety-related gastrointestinal symptoms.
- Data:
Category 1: My independent interpretation of the EKG indicates sinus tachycardia with mild left ventricular hypertrophy.
- Risk: Prescription medication was prescribed: ondansetron (Zofran). The patient was discharged with close follow-up recommended due to potential gastrointestinal and cardiac complications.
DIAGNOSIS
1. Nausea and vomiting, unspecified (R11.2)
2. Abdominal pain, unspecified site (R10.84)
3. Hiatal hernia (K44.9)
Past History
Past History
ED Past Medical History: Asthma, Seizures, Psychiatric (Depression, conversion disorder), Other (Chronic pain syndrome, migraine headaches, morbid obesity, extensive workup for connective tissue disease, mitochondrial disease, neuro cardiogenic
syncope, strokes) and Other (Diverticulitis, Abd hernia, UTI, Anemia, Primary immune def. disease, TI fistula)
ED Past Surgical History: (X 4) and Other (muscle bx x 4, Trach, )
Social History
Tobacco: Former smoker
Alcohol: None
Personal:
Living: with family
Employment: Not employed
Family History
Family History: Other (Reviewed and non-contributory)
Phy Exam
Physical Exam
Physical Exam:
.
Scores
Heart Score for Chest Pain Patients
STEMI patient?: No
History: Slightly or Non-Suspicious
ECG: Normal
Age: >45 - <65 years
Risk Factors: No Risk Factors
Troponin: </= Normal Limit
Heart Score for Chest Pain Patients: 1
Heart Score Risk: 2.5% MACE over next 6 weeks
Course
Orders/Labs/Results
Orders:
Orders
12/29/24 15:10
EKG [Electrocardiogram (*1)] Urgent
Reason for Study: Chest Pain
EKG- Treatment ONCE
12/29/24 15:13
Complete Blood Count/With Diff Urgent
Comprehensive Metabolic Panel Urgent
Prothrombin Time Urgent
Troponin I Urgent
12/29/24 15:14
CT Head W/o Iv Contrast Urgent
Comment:
Reason For Exam: change of mental
CR Chest Portable - 1 View Urgent
Comment:
Reason For Exam: cough
Reason Study Needs to be Portable: Unable to Transport
12/29/24 19:19
0.9% Sodium Chloride 1000 ml [Nss] 1,000 ml IV BOLUS
12/29/24 20:10
Troponin I Urgent
Abnormal Lab Results
12/29/24
15:13
WBC 13.0 H 10^3/uL
(4.8-10.8)
Hgb 11.9 L g/dL
(12.0-16.0)
MCHC 31.5 L g/dL
(33.0-37.0)
Abs Immat Gran (auto) 0.1 H 10^3/uL
(0-0.05)
Absolute Neuts (auto) 9.3 H 10^3/uL
(1.4-6.5)
Absolute Monos (auto) 0.8 H 10^3/uL
(0.1-0.6)
Lymphocytes % 17.6 L %
(20.5-51.1)
Sodium 134 L mmol/L
(135-145)
Carbon Dioxide 21 L mmol/L
(22-30)
BUN 22 H mg/dl
(7-17)
Creatinine 1.3 H mg/dL
(0.6-1.0)
Alkaline Phosphatase 161 H U/L
(38-126)
12/29/24 15:13
12/29/24 15:13
Vital Signs
Initial and Last Documented VS:
Initial Vital Signs
Pulse Ox
97
12/29/24 15:07
Last Documented Vital Signs
Temp Pulse Resp BP Pulse Ox
98.3 F 87 15 130/82 96
12/29/24 20:18 12/29/24 22:30 12/29/24 22:30 12/29/24 22:13 12/29/24 22:30
*Pulse Oximetry
SaO2: 100
Nasal Cannula flow liters per minute: 4
Oxygen Mode of Delivery: Room air
Patient hypoxic: no
*Critical Care Note
Total Time (30-74mins, 75-104mins- exclusive of procedures): Not Applicable
ED Attending Note
-
Portions of this chart may have been created with voice recognition software.� Occasional wrong word or��sound alike� substitutions may have occurred due to the inherent limitations of voice recognition software.
Discharge Plan
Departure
Patient Disposition: Home (Routine Discharge)
Date of Disposition: 12/29/24
Time of Disposition: 22:29
Patient with high blood pressure during this ER visit?: No
Condition: Good
Discharge Problem:
Nausea and vomiting, Syncope
Instructions: Syncope (fainting), Acute Nausea and Vomiting
Prescriptions:
No Action
pravastatin 40 MG tablet
40 mg PO HS
morphine 15 MG tablet extended release
45 mg PO DAILY
zinc 15 MG tablet
15 mg PO DAILY
famotidine 40 MG tablet
40 mg PO HS
pantoprazole 40 MG tablet,delayed release (DR/EC)
40 mg PO BID
levothyroxine 125 MCG tablet
125 mcg PO DAILY
cyanocobalamin (vitamin B-12) 1,000 MCG tablet
500 mcg PO DAILY
levetiracetam 250 MG tablet
750 mg PO BID
spironolactone 50 MG tablet
100 mg PO BID
budesonide 1 MG/2 ML suspension for nebulization
1 mg IH R TID
oxycodone-acetaminophen 10-325 mg tablet
1 tab PO Q4H@09,13,17,21,0100
Patient Comments:
02/17/2023, patient filled this medication on 01/27/2023 for 150 tablets according to PDMP.
hyoscyamine sulfate 0.125 mg Tablet, Sublingual
0.125 mg PO Q4HPRN PRN (Reason: esophageal spamsms)
coQ10 (ubiquinol) 200 mg Capsule
200 mg PO TID
Dupixent Pen 300 mg/2 mL pen injector
300 mg SC Q2W
aluminum hydrox-magnesium carb 95-358 mg/15 mL Suspension
5 ml PO Q4HPRN PRN (Reason: gerd) Qty: 0
sennosides [senna] 8.6 mg Tablet
8.6 mg PO HS
prednisone 10 mg Tablet
7 mg PO QPM
benzonatate 200 mg Capsule
200 mg PO TID
morphine 30 mg Tablet Extended Release
60 mg PO HS
Patient Comments:
02/17/2023, patient filled this medication on 02/09/2023 for 90 tablets according to PDMP.
potassium chloride [Klor-Con M20] 20 mEq Tablet,Er Particles/Crystals
20 meq PO TID
niacinamide 500 mg Tablet
500 mg PO QPM Qty: 0
nystatin 100,000 unit/gram Cream
1 applic TOPICAL BID
magnesium oxide 500 mg Tablet
1,000 mg PO BID
bumetanide 1 mg Tablet
1 mg PO DAILY
nystatin 100,000 unit/gram Powder
1 applic TOPICAL BID
riboflavin (vitamin B2) [Vitamin B-2] 50 mg Tablet
50 mg PO Q48H
topiramate 50 mg Tablet
150 mg PO HS
arformoterol [Brovana] 15 mcg/2 mL Solution For Nebulization
2 ml INHALATION R BID
calcium carbonate-vitamin D3 [Calcium 500 + D] 500 mg-10 mcg (400 unit) Tablet
1 tab PO DAILY Qty: 0
Visbiome 112.5 billion cell Capsule
1 cap PO DAILY
sodium chloride 7 % Solution For Nebulization
4 ml INHALATION R BID
Gentle Iron 28 mg iron-60mg -400 mcg-8 mcg Capsule
1 cap PO DAILY@0500 Qty: 0
Carnitine powder
3,000 mg PO DAILY
ipratropium-albuterol 0.5 mg-3 mg(2.5 mg base)/3 mL Solution For Nebulization
3 ml INHALATION R BID
duloxetine 30 mg Capsule,Delayed Release(Dr/Ec)
30 mg PO BID
cetirizine [Zyrtec] 10 mg Tablet
10 mg PO DAILY
lidocaine 5 % Adhesive Patch,Medicated
3 patch TOPICAL DAILYPRN PRN (Reason: mild pain)
folic acid 1 mg Tablet
2 mg PO HS
Creon 36,000-114,000- 180,000 unit Capsule,Delayed Release(Dr/Ec)
2 cap PO BID@1200,1800
Creon 36,000-114,000- 180,000 unit Capsule,Delayed Release(Dr/Ec)
1 cap PO DAILYPRN PRN (Reason: snacks)
nitroglycerin 0.4 mg Tablet, Sublingual
0.4 mg SUBLINGUAL Q5-15M PRN (Reason: esophgeal spasms)
Referrals:
Uma Gabriel MD [Family Provider, Family Practice] - Call in 1-3 days for appt
Interventions
Interventions:
*Risk Screen - Suicide Last Done: 12/29/24 15:07
*General Assessment Last Done: 12/29/24 15:07
*Neglect/Abuse Screening Last Done: 12/29/24 15:07
*ED- Fall Risk Assessment Last Done: 12/29/24 22:50
*ED COVID-19 Vaccine History Last Done: 12/29/24 15:07
*ED Influenza Vaccine History Last Done: 12/29/24 15:07
*Nursing Disposition Last Done: 12/29/24 22:50
ED- Cardiac Assessment Last Done: 12/29/24 20:19
Discharge Date and Time
Discharge Date/Time: 12/29/24 22:52
Print Language: SURINAMESE
[2024-12-29 20:01] VITALS: BP 113/85
[2024-12-29] MEDS: NSS 1000 IV (20:05)
[2024-12-29 20:47] LABS: Troponin I 0.016 ng/ml
[2024-12-29 22:13] VITALS: BP 130/82
== END 2024-12-29 22:52 | disposition home or self-care (01) ==
LOC: EMR 15:02
PROVIDERS: Emergency Medicine; EMERGENCY PHYSICIAN Emergency Medicine; FAMILY PHYSICIAN Family Medicine
DX: R55 Syncope and collapse (principal); R11.2 Nausea with vomiting, unspecified; K86.89 Other specified diseases of pancreas; K22.4 Dyskinesia of esophagus; J45.909 Unspecified asthma, uncomplicated; R00.0 Tachycardia, unspecified; K44.9 Diaphragmatic hernia without obstruction or gangrene; R10.9 Unspecified abdominal pain; Z87.891 Personal history of nicotine dependence
CPT/HCPCS: 96360; 99285; 70450; 71045; 80053; 84484; 85025; 85610; 93005